=== PATIENT | female | born 1945 | race Two or more races ===

== ENCOUNTER 2019-01-02 15:13 | Emergency (ER) | payer OTHER ==
--- NOTE | 2019-01-02 15:22 | PDOC ---
Rapid Medical Evaluation Chief Complaint: Chest Pain Time Seen by Provider: 01/02/19 15:20 Medical Evaluation: 01/02/19 15:20 I have performed a brief in person evaluation of this patient. CC: CP HPI: Pt is a 73 YO female who states she has had CP x 1 day. Denies CV hx however has hx of DM and Hypercholesterolemia. PE: Skin: Clear Lungs: Clear Heart:RRR Abd: soft, nontender MS: Moves all extremities without difficulty Neuro: Alert and oriented Psych: Appropriate affect I have ordered the following: CV protocol Pt will proceed to the main ED for further evaluation. Discharge Disposition - Diagnosis Chest pain Qualifiers: Chest pain type: unspecified Qualified Code(s): R07.9 - Chest pain, unspecified - Referrals - Patient Instructions - Post Discharge Activity
[2019-01-02 15:26] VITALS: TEMP 97.2; BMI 30.1
[2019-01-02 15:53] LABS: BASO % 0.8 % (0-2.0); EOS % 0.5 % (0-4.5); HEMATOCRIT 41.9 % (32.4-45.2); HEMOGLOBIN 13.9 GM/dL (10.7-15.3); LYMPH % 23.8 % (8-40); MCH 28.2 pg (25.7-33.7); MCHC 33.2 g/dl (32.0-36.0); MEAN CELL VOLUME 84.9 fl (80-96); MEAN PLT VOLUME 8.7 fl (7.5-11.1); MONO % 5.1 % (3.8-10.2); NEUT % 69.8 % (42.8-82.8); PLATELET COUNT 329 K/MM3 (134-434); RBC 4.93 M/mm3 (3.60-5.2); RDW 14.3 % (11.6-15.6); WHITE BLOOD COUNT 9.2 K/mm3 (4.0-10.0)
[2019-01-02 16:11] LABS: ALBUMIN 3.4 g/dl (3.4-5.0); ALK PHOS 124 U/L (45-117); ANION GAP 6 MMOL/L (8-16); BILIRUBIN,TOTAL 0.3 mg/dL (0.2-1); BLOOD UREA NITROGEN 10 mg/dL (7-18); CHLORIDE 103 mmol/L (98-107); CO2 29 mmol/L (21-32); CREATININE 0.7 mg/dL (0.55-1.3); GLUCOSE,RANDOM 246 mg/dL (74-106); MAGNESIUM 1.9 mg/dL (1.8-2.4); POTASSIUM 4.7 mmol/L (3.5-5.1); SGOT/AST 17 U/L (15-37); SGPT/ALT 24 U/L (13-61); SODIUM 138 mmol/L (136-145); TOT PROT 6.9 g/dl (6.4-8.2)
--- NOTE | 2019-01-02 16:20 | PDOC ---
History of Present Illness - General Chief Complaint: Chest Pain Stated Complaint: CHEST PAIN Time Seen by Provider: 01/02/19 15:20 History Source: Patient, Family ( and son at bedside.), [employer] Used Exam Limitations: Language Barrier - History of Present Illness Initial Comments: HPI: 75 y/o female presenting to [facility] ER complaining of a burning sensation to center of chest x2 days. Reports postprandial improvement. Endorses mild SOB, nausea, and diaphoresis when symptoms are at maximal intentensity. Denies radiation to back, neck, or arms. No change with exertion. No history of similar symptoms. Some improvement when taking prescribed Gabapentin. Pt denies difficulty taking prescribed diabetic medications. Pt is Tristanian german speaking only. Interpretation provided by Red Aril [employer]. PCP: Ricki Alberts Hx: - No foreign travel in past three months Medical Hx: - Insulin dependent Diabetes - HLD - Chronic right shoulder and back pain Past History - Past Medical History Allergies/Adverse Reactions: Allergies Allergy/AdvReac Type Severity Reaction Status Date / Time No Known Allergies Allergy Verified 01/02/19 15:23 Home Medications: Ambulatory Orders Amoxicillin - [Amoxicillin 250mg Capsule -] 250 mg PO BID 01/02/19 Aspirin [ASA -] 81 mg PO DAILY 01/02/19 Bisoprolol Fumarate 5 mg PO DAILY 01/02/19 Gabapentin 600 mg PO TID 01/02/19 Lisinopril 2.5 mg PO DAILY 01/02/19 Metoclopramide HCl 5 mg PO TID 01/02/19 Omeprazole 20 mg PO DAILY 14 Days #14 tablet. 01/02/19 - Suicide/Smoking/Psychosocial Hx Smoking History: Never smoked Hx Alcohol Use: No Drug/Substance Use Hx: No Review of Systems - Review of Systems Able to Perform ROS?: Yes Comments:: In addition to that documented in the HPI above, the additional ROS was obtained : Constitutional: Denies fevers or chills Eyes: Denies vision changes ENMT: Denies sore throat CV: Per HPI. Denies palpitations. Resp: Per HPI GI: Denies vomiting or diarrhea : Denies painful urination MSK: Denies recent trauma Skin: Denies new rashes Neuro: Denies new numbness or tingling or weakness Endocrine: Denies polyuria Heme: Denies bleeding or bruising *Physical Exam - Vital Signs Last Vital Signs Temp Pulse Resp BP Pulse Ox 97.2 F L 68 18 125/65 96 01/02/19 15:23 01/02/19 15:23 01/02/19 15:23 01/02/19 15:23 01/02/19 15:23 - Physical Exam Comments: Constitutional: Well-developed, well-nourished, obese female in no acute distress or obvious discomfort. Found semi-fowlers on hospital bed. Alert and oriented x4. Answered all questions appropriately and completely. Speech was non -labored, non-pressured. Head: Normocephalic. No obvious external signs of trauma. Eyes: Sclerae white. Conjunctiva moist and not injected. Ears: Hearing grossly intact. Nose: No nasal discharge. Throat: Oral cavity and pharynx normal. No inflammation, swelling, exudate, or lesions. Neck: Supple, trachea is midline. Cardiovascular / Chest: Regular rate and regular rhythm. No murmur, rubs, clicks, or gallops. Peripheral pulses: radial pulses full. Mild diffuse tenderness to sternal palpation. No grimace or withdrawl. Respiratory: Breathing unlabored. Equal chest rise and fall. Clear to auscultation bilaterally. No stridor, no wheezing, no rhonchi. Gastrointestinal: abdomen is tender in RUQ with grimace but no rebound or guarding. No Gaines sign. Globally, abdomen is soft and nondistended. Neuro: Alert and oriented. Moving all four extremities spontaneously. Skin: Warm, dry, and intact. Psych: Affect: appropriate. Mood: normal. Moderate Sedation - Procedure Monitoring Vital Signs: Procedure Monitoring Vital Signs Temperature 97.2 F L 01/02/19 15:23 Pulse Rate 68 01/02/19 15:23 Respiratory Rate 18 01/02/19 15:23 Blood Pressure 125/65 01/02/19 15:23 O2 Sat by Pulse Oximetry (%) 96 01/02/19 15:23 ED Treatment Course - LABORATORY CBC & Chemistry Diagram: 01/02/19 15:39 01/02/19 15:39 - ADDITIONAL ORDERS Additional order review: Laboratory Results 01/02/19 15:39 Sodium 138 Potassium 4.7 Chloride 103 Carbon Dioxide 29 Anion Gap 6 L BUN 10 Creatinine 0.7 Creat Clearance w eGFR > 60 Random Glucose 246 H Calcium 9.0 Magnesium 1.9 Total Bilirubin 0.3 AST 17 ALT 24 Alkaline Phosphatase 124 H Creatine Kinase 75 Troponin I < 0.02 Total Protein 6.9 Albumin 3.4 01/02/19 15:39 RBC 4.93 MCV 84.9 MCHC 33.2 RDW 14.3 MPV 8.7 Neutrophils % 69.8 Lymphocytes % 23.8 Monocytes % 5.1 Eosinophils % 0.5 Basophils % 0.8 Medical Decision Making - Medical Decision Making *Reviewed vital signs, nursing notes, and prior visit documentation (if available). 76 y/o Yaminese Telugu speaking female complaining of burning sensation in chest relieved by eating x2 days. H/o of insulin dependent diabetes and HLD. No exertional component. Afebrile. Vitals unremarkable for hypotension or tachycardia. Physical exam as described above. Suspect gastric reflux versus PUD. Ordered GI cocktail. Obtained RUQ U/S given RUQ pain. Unremarkable for evidence of cholecystitis. Low suspicion for ACS. EKG was unremarkable for ectopy. 2x trended troponin were negative. CBC unremarkable for anemia or leukocytosis. CMP unremarkable for significant electrolyte derangement. LFTs within normal limits. Lipase not elevated. Will prescribe omeprazole prescription x14 days. 20:12 Attempted to reassess pt but unable to locate. Neither pt nor family are in assigned room. Jackets and pts pill bottles remain in bed. Will attempt to reassess again. 20:55 Pt reassessed. Family reports they left the department to eat dinner. Pt reports the pain resolved after taking the medication. Discussed imaging and laboratory results with pt and family. Answered all questions. Provided return precautions. Pt expressed verbal understanding and agreement with plan to discharge home with outpatient follow up. *DC/Admit/Observation/Transfer Diagnosis at time of Disposition: Atypical chest pain - Discharge Dispostion Disposition: HOME Condition at time of disposition: Good Decision to Admit order: No - Prescriptions Prescriptions: Omeprazole 20 mg PO DAILY 14 Days #14 tablet.dr - Referrals Referrals: Paul Robison MD [Primary Care Provider] - - Patient Instructions Printed Discharge Instructions: DI for Gastroesophageal Reflux Disease (GERD), DI for Chest Pain Additional Instructions: You were seen today for a burning sensation in your chest. Your EKG, chest xray , ultrasound, and blood work were normal today. Your symptoms are likely from acid reflux. I have sent a prescription for Omeprazole to your pharmacy. Take this medication once a day in the morning an hour before breakfast. You should follow up with Dr. Robison within the next week to make sure your symptoms are improving. A copy of todays results are attached to this packet. Take it to the appointment so your doctor can review them. Go to the nearest emergency department if your condition worsens or you feel like you need additional emergency evaluation. Print Language: CROATIAN - Post Discharge Activity
[2019-01-02 16:53] LABS: INR 0.98 (0.83-1.09); PROTHROMBIN TIME (PATIENT) 11.6 SEC (9.7-13.0)
[2019-01-02] MEDS ORDERED: PANTOPRAZOLE SODIUM 40 MG VIAL IVPUSH ONE (17:03)
[2019-01-02] MEDS ORDERED: LIDOCAINE VISCOUS 2% ORAL/TOP 100 ML BOTTLE MM ONE (17:03)
[2019-01-02] MEDS ORDERED: MAG HYDROX/AL HYDROX/SIMETH 30 ML UNIT-DOSE CUP PO ONE (17:03)
--- NOTE | 2019-01-02 17:10 | PDOC ---
Attending Attestation - HPI HPI: 01/02/19 18:16 The patient is a 73 year old female with a significant past medical history of diabetes and hypercholesterolemia who presents to the emergency department with chest pain for 2 days. The patient describes her chest pain as a non-radiating burning sensation in her mid chest. She states that her chest pain is better with eating and sometimes relieved with exertion. She denies any metallic taste in her mouth, vomiting, diarrhea, constipation or urinary symptoms. She denies any recent travel. The patient denies any other symptoms or complaints. Documentation prepared by Randall Aguirre, acting as medical pathology teacher for Allison Saldivar MD. <Randall Aguirre - Last Filed: 01/02/19 18:16> - Resident Resident Name: Juan Quarles - ED Attending Attestation I have performed the following: I have examined & evaluated the patient, The case was reviewed & discussed with the resident, I agree w/resident's findings & plan, Exceptions are as noted - HPI HPI: 01/02/19 17:08 73-year-old female presents with 2 days of mid chest burning sensation that gets better with eating. She also has c/o RUQ pain 01/02/19 17:14 - Physicial Exam PE: 01/02/19 17:14 wnwd 73 yo female head ncat eyes eomi throat no exudates neck supple,no jvd,no bruit lungs cta b/l cvs [id number] abd no rebound,no guarding ext no edema,no clubbing skin warm and dry neuro axox3,ambulatory - Medical Decision Making 01/02/19 17:16 pt's symptoms bring up concern for GERD and she was given protonix, viscous lidocaine,maalox ekg is nsr with no abnormalities,no ischemia,normal QTc NEGATIVE troponin,labs unremarkable 01/02/19 20:22 both sets of cardiac enzymes are negative and pt d/c home w impression of GERD symptoms <Allison Saldivar - Last Filed: 01/02/19 20:22>
[2019-01-02 17:41] LABS: LIPASE 164 U/L (73-393)
[2019-01-02] MEDS ORDERED: PANTOPRAZOLE SODIUM 40 MG VIAL ONE (18:46)
[2019-01-02] MEDS ORDERED: MAG HYDROX/AL HYDROX/SIMETH 30 ML UNIT-DOSE CUP ONE (18:46)
[2019-01-02] MEDS ORDERED: LIDOCAINE VISCOUS 2% ORAL/TOP 20 ML UNIT-DOSE CUP ONE (19:06)
[2019-01-02 20:23] VITALS: BP 113/59; PULSE 78
--- NOTE | 2019-01-04 11:58 | EKG ---
Test Reason : Blood Pressure : / mmHG Vent. Rate : 067 BPM Atrial Rate : 067 BPM P-R Int : 164 ms QRS Dur : 088 ms QT Int : 400 ms P-R-T Axes : 008 002 045 degrees QTc Int : 422 ms NORMAL SINUS RHYTHM NORMAL ECG NO PREVIOUS ECGS AVAILABLE Confirmed by NANY LOZOYA MD ([id number]) on 01/04/2019 11:57:49 AM Referred By: Confirmed By:NANY LOZOYA MD
== END 2019-01-02 21:22 | disposition home or self-care (01) ==
LOC: JER 15:13
PROC: 3E033GC Introduction of Other Therapeutic Substance into Peripheral Vein, Percutaneous Approach (ICD-10-PCS; principal; 2019-01-02)
DX: R07.89 Other chest pain (principal); E11.9 Type 2 diabetes mellitus without complications; Z79.4 Long term (current) use of insulin; E78.5 Hyperlipidemia, unspecified; M25.511 Pain in right shoulder; M54.9 Dorsalgia, unspecified; G89.29 Other chronic pain
CPT/HCPCS: 36415; 71046-TC-FY; 76705-TC; 80053; 82550; 83690; 83735; 84484; 85025; 85610; 93005; 93010; 96374; 99284-25

== ENCOUNTER 2019-02-26 15:27 | Observation (INO) | payer OTHER ==
--- NOTE | 2019-02-26 15:43 | PDOC ---
Rapid Medical Evaluation Chief Complaint: Chest Pain Time Seen by Provider: 02/26/19 15:42 Medical Evaluation: Allergies Allergy/AdvReac Type Severity Reaction Status Date / Time No Known Allergies Allergy Verified 02/20/19 10:13 02/26/19 15:42 I have performed a brief in-person evaluation of this patient. The patient presents with a chief complaint of: epigastric pain x 1 month Pertinent physical exam findings: No chest tenderness. Lungs CTAB. I have ordered the following: labs, urine, ekg The patient will proceed to the ED for further evaluation. Discharge Disposition - Diagnosis Epigastric pain - Referrals - Patient Instructions - Post Discharge Activity
--- NOTE | 2019-02-26 15:58 | PDOC ---
History of Present Illness - General Chief Complaint: Chest Pain Stated Complaint: SEND FROM PCP FOR OBSERVATION AND WORK UP Time Seen by Provider: 02/26/19 15:42 History Source: Patient Exam Limitations: No Limitations - History of Present Illness Initial Comments: 02/26/19 16:27 73 year old female with PMH HTN, HLD, DM, peripheral neuropathy, GERD presented to ED for epigastric burning x5 months. Pt sent to ED by Dr. Robison. Pt stated her epigastric burning is worse with eating, radiates to her back and chest, no alleviating factors, no association with time of day, no association with lying flat. Pt admitted to nausea after eating. Pt denied vomiting, diarrhea, fever, chills. Pt denied recent travel out of the country. Allergies: NKDA Past History - Past Medical History Allergies/Adverse Reactions: Allergies Allergy/AdvReac Type Severity Reaction Status Date / Time No Known Allergies Allergy Verified 02/26/19 15:44 Home Medications: Ambulatory Orders Amoxicillin - [Amoxicillin 250mg Capsule -] 250 mg PO BID 01/02/19 Aspirin [ASA -] 81 mg PO DAILY 01/02/19 Bisoprolol Fumarate 5 mg PO DAILY 01/02/19 Gabapentin 600 mg PO TID 01/02/19 Lisinopril 2.5 mg PO DAILY 01/02/19 Metoclopramide HCl 5 mg PO TID 01/02/19 Omeprazole 20 mg PO DAILY 14 Days #14 tablet. 01/02/19 Dicyclomine HCl 10 mg PO BID 02/26/19 Insulin Glargine,Hum.rec.anlog [Lantus Solostar PEN (NF)] 8 units SQ HS Insulin Glargine,Hum.rec.anlog [Lantus Solostar PEN (NF)] 30 units SQ AM Simvastatin 20 mg PO DAILY 02/26/19 COPD: No Diabetes: Yes Hypercholesterolemia: Yes Other medical history: THORACIC ANEURYSM - Suicide/Smoking/Psychosocial Hx Smoking History: Never smoked Information on smoking cessation initiated: No Hx Alcohol Use: No Drug/Substance Use Hx: No Review of Systems - Review of Systems Able to Perform ROS?: Yes Comments:: 02/26/19 16:29 General: denied fever, chills, generalized weakness. HEENT: denied sore throat, rhinorrhea, ear pain. Heart: denied chest pain, palpitations, syncope, diaphoresis. Respiratory: denied shortness of breath, cough, sputum production, hemoptysis. Abdomen: admitted to abdominal pain, nausea. denied vomiting, diarrhea, constipation, blood in stool. : denied dysuria, increased urinary frequency, hematuria, urinary incontinence , flank pain. Back: denied back pain. Musculoskeletal: denied joint pain, muscle pain, joint swelling. Neurological: denied headache, dizziness, numbness, tingling, weakness. Skin: denied rash, laceration, abrasion. *Physical Exam - Vital Signs Last Vital Signs Temp Pulse Resp BP Pulse Ox 97.7 F 82 18 139/82 98 02/26/19 15:42 02/26/19 15:42 02/26/19 15:42 02/26/19 15:42 02/26/19 15:42 - Physical Exam Comments: 02/26/19 16:29 Constitutional: Well-nourished, Well-developed, appearing stated age. HEENT: head is normocephalic, atraumatic. EOMI. PERRLA. Neck: supple. Full ROM. Heart: regular rhythm. no murmurs, rubs or gallops. Lungs: clear to auscultation bilaterally. no crackles, rhonchi or wheezing. no stridor. Abdomen: soft, flat. tenderness to palpation of LUQ. hyperactive bowel sounds. no rebound, guarding, masses. Extremities: peripheral pulses intact. no lower extremity edema. Neurological: CN 2-12 grossly intact. moves all four extremities. Psych: awake, alert, oriented x3. follows commands. answers questions appropriately. ED Treatment Course - LABORATORY CBC & Chemistry Diagram: 02/27/19 06:30 02/26/19 16:02 Medical Decision Making - Medical Decision Making 02/26/19 16:29 73 year old female with above PMH presented to ED for abdominal pain x5 months. Sent to ED by Dr. Robison for admission. Initial Vital Signs Temp Pulse Resp BP Pulse Ox 97.7 F 82 18 139/82 98 02/26/19 15:42 02/26/19 15:42 02/26/19 15:42 02/26/19 15:42 02/26/19 15:42 Afebrile. No tachycardia. No tachpnea. Mild hypertension. No hypoxia on room air. Imaging ordered: CT abdomen/pelvis Medications ordered: pepcid, maalox, reglan, tylenol IV CBC WBC 8.6 K/mm3 (4.0-10.0) 02/26/19 16:02 RBC 5.08 M/mm3 (3.60-5.2) 02/26/19 16:02 Hgb 14.0 GM/dL (10.7-15.3) 02/26/19 16:02 Hct 43.5 % (32.4-45.2) 02/26/19 16:02 MCV 85.6 fl (80-96) 02/26/19 16:02 MCH 27.5 pg (25.7-33.7) 02/26/19 16:02 MCHC 32.1 g/dl (32.0-36.0) 02/26/19 16:02 RDW 14.5 % (11.6-15.6) 02/26/19 16:02 Plt Count 337 K/MM3 (134-434) 02/26/19 16:02 MPV 8.7 fl (7.5-11.1) 02/26/19 16:02 Absolute Neuts (auto) 6.0 K/mm3 (1.5-8.0) 02/26/19 16:02 Neutrophils % 69.9 % (42.8-82.8) 02/26/19 16:02 Lymphocytes % 21.8 % (8-40) 02/26/19 16:02 Monocytes % 6.6 % (3.8-10.2) 02/26/19 16:02 Eosinophils % 0.6 % (0-4.5) 02/26/19 16:02 Basophils % 1.1 % (0-2.0) 02/26/19 16:02 Nucleated RBC % 0 % (0-0) 02/26/19 16:02 No leukocytosis. No anemia. CMP Sodium 136 mmol/L (136-145) 02/26/19 16:02 Potassium 4.4 mmol/L (3.5-5.1) 02/26/19 16:02 Chloride 102 mmol/L (98-107) 02/26/19 16:02 Carbon Dioxide 28 mmol/L (21-32) 02/26/19 16:02 Anion Gap 6 MMOL/L (8-16) L 02/26/19 16:02 BUN 9 mg/dL (7-18) 02/26/19 16:02 Creatinine 0.7 mg/dL (0.55-1.3) 02/26/19 16:02 Creat Clearance w eGFR 82.25 (>60) 02/26/19 16:02 POC Glucometer 74 UNITS (80-120) 02/27/19 06:15 Random Glucose 279 mg/dL (74-106) H 02/26/19 16:02 Hemoglobin A1c % 8.4 % (4.2-6.3) H 02/27/19 04:39 Calcium 9.1 mg/dL (8.5-10.1) 02/26/19 16:02 Magnesium 1.8 mg/dL (1.8-2.4) 02/26/19 16:02 Total Bilirubin 0.4 mg/dL (0.2-1) 02/26/19 16:02 AST 16 U/L (15-37) 02/26/19 16:02 ALT 22 U/L (13-61) 02/26/19 16:02 Alkaline Phosphatase 119 U/L (45-117) H 02/26/19 16:02 Creatine Kinase 54 U/L (26-192) 02/26/19 16:02 Troponin I < 0.02 ng/ml (0.00-0.05) 02/26/19 16:02 Total Protein 7.5 g/dl (6.4-8.2) 02/26/19 16:02 Albumin 3.6 g/dl (3.4-5.0) 02/26/19 16:02 Lipase 152 U/L (73-393) 02/26/19 16:02 No electrolyte abnormalities. No CARLOS. Hyperglycemia on BMP. Elevated Hbg A1C Normal troponin. Normal lipase. CXR: prominent mediastinum. clear lungs. sharp angles. CT abdomen/pelvis: no definitie findings of acute pathology. in comparison to CT from 2017 interval development of 3 mm nonobstructing right elliot;l calculus is seen. the reaminder of the abdomen/pelvis exam no obvious interal change. *DC/Admit/Observation/Transfer Diagnosis at time of Disposition: Epigastric pain - Discharge Dispostion Condition at time of disposition: Stable Decision to Admit order: Yes - Referrals - Patient Instructions - Post Discharge Activity
[2019-02-26 16:13] LABS: BASO % 1.1 % (0-2.0); EOS % 0.6 % (0-4.5); HEMATOCRIT 43.5 % (32.4-45.2); LYMPH % 21.8 % (8-40); MCH 27.5 pg (25.7-33.7); MCHC 32.1 g/dl (32.0-36.0); MEAN CELL VOLUME 85.6 fl (80-96); MEAN PLT VOLUME 8.7 fl (7.5-11.1); MONO % 6.6 % (3.8-10.2); NEUT % 69.9 % (42.8-82.8); PLATELET COUNT 337 K/MM3 (134-434); RBC 5.08 M/mm3 (3.60-5.2); RDW 14.5 % (11.6-15.6); WHITE BLOOD COUNT 8.6 K/mm3 (4.0-10.0)
[2019-02-26 16:26] LABS: INR 1.02 (0.83-1.09)
[2019-02-26] MEDS ORDERED: MAG HYDROX/AL HYDROX/SIMETH 30 ML UNIT-DOSE CUP PO ONE (16:31)
[2019-02-26] MEDS ORDERED: FAMOTIDINE 20 MG/50 ML IVPB 20 MG/50 ML MG IVPB ONE ×2 (16:31→17:06)
[2019-02-26] MEDS ORDERED: ACETAMINOPHEN 1000 MG/100 ML VIAL (NON FORMULARY) IVPB ONE (16:31)
[2019-02-26] MEDS ORDERED: METOCLOPRAMIDE HCL INJECTION 10 MG/2 ML VIAL IVPUSH ONE (16:31)
--- NOTE | 2019-02-26 16:42 | PDOC ---
Documentation entered by Angela Mosquera SCRIBE, acting as scribe for Caroline Delgado MD. Attending Attestation - Resident Resident Name: Faye Walker - ED Attending Attestation I have performed the following: I have examined & evaluated the patient, The case was reviewed & discussed with the resident, I agree w/resident's findings & plan - HPI HPI: 02/26/19 16:50 The patient is a 73 year old with a PMH of HTN, HLD, DM, peripheral neuropathy, and GERD who presents to the ED sent in by Dr. Robison for a 5 month history epigastric burning. The epigatric pain is exacerbated with food, and radiates into her back and chest. Patient endorses nausea, but no vomiting after eating. Denies sick contact or recent travel. Allergies: NKDA - Physicial Exam PE: GENERAL: Awake, alert, and fully oriented, in no acute distress. Appears uncomfortable HEAD: No signs of trauma EYES: PERRLA, EOMI, sclera anicteric, conjunctiva clear ENT: Auricles normal inspection, hearing grossly normal, nares patent, oropharynx clear without exudates. Moist mucosa NECK: Normal ROM, supple, no lymphadenopathy, JVD, or masses LUNGS: Breath sounds equal, clear to auscultation bilaterally. No wheezes, and no crackles HEART: Regular rate and rhythm, normal S1 and S2, no murmurs, rubs or gallops ABDOMEN: Soft, +epigastric tenderness, normoactive bowel sounds. No guarding, no rebound. No masses EXTREMITIES: Normal range of motion, no edema. No clubbing or cyanosis. No cords, erythema, or tenderness NEUROLOGICAL: Cranial nerves II through XII grossly intact. Normal speech, normal gait. Motor and sensation intact SKIN: Warm, Dry, normal turgor, no rashes or lesions noted. - Medical Decision Making Pt with epigastric/upper abdominal pain for past 5 months, sent by Dr. Robison for evaluation. Await labs, then will obtain imaging. Plan for admission. Caroline Delgado MD: This documentation has been prepared by the talaeDemetri Daisy, SCRIBE, under my direction and personally reviewed by me in its entirety. I confirm that the documentation accurately reflects all work, treatment, procedures, and medical decision making performed by me.
[2019-02-26] MEDS ORDERED: ONDANSETRON 4 MG/2 ML VIAL IVPB PRN (16:59)
[2019-02-26] MEDS ORDERED: MAG HYDROX/AL HYDROX/SIMETH 30 ML UNIT-DOSE CUP ONE (17:01)
[2019-02-26] MEDS ORDERED: ACETAMINOPHEN INJECTION 100 ML IVPB ONE (17:04)
[2019-02-26] MEDS ORDERED: METOCLOPRAMIDE HCL INJECTION 10 MG/2 ML VIAL ONE (17:08)
[2019-02-26 17:09] LABS: ALBUMIN 3.6 g/dl (3.4-5.0); ALK PHOS 119 U/L (45-117); ANION GAP 6 MMOL/L (8-16); BILIRUBIN,TOTAL 0.4 mg/dL (0.2-1); BLOOD UREA NITROGEN 9 mg/dL (7-18); CALCIUM 9.1 mg/dL (8.5-10.1); CHLORIDE 102 mmol/L (98-107); CO2 28 mmol/L (21-32); CREATININE 0.7 mg/dL (0.55-1.3); GLUCOSE,RANDOM 279 mg/dL (74-106); LIPASE 152 U/L (73-393); MAGNESIUM 1.8 mg/dL (1.8-2.4); POTASSIUM 4.4 mmol/L (3.5-5.1); SGOT/AST 16 U/L (15-37); SGPT/ALT 22 U/L (13-61); SODIUM 136 mmol/L (136-145); TOT PROT 7.5 g/dl (6.4-8.2)
--- NOTE | 2019-02-26 17:26 | HP ---
Admitting History and Physical - Primary Care Physician PCP: Paul Robison - Admission Chief Complaint: Abdominal pain History of Present Illness: Patient is a 73 y/o female with past medical history of HTN, HLD, DM, GERD, peripheral neuropathy. Patient presented to ER from PCP office with complaints of abdominal pain accompanied with nausea x 5 months. Abdominal pain radiates to chest and back and is exacerbated with food. Patient has been taking Omeprazole but does not relieve abdominal pain. Patient is followed by GI Dr. Vasquez and as per patient endoscopy performed 2 months ago, no report available for review. History Source: Patient, Family Member Limitations to Obtaining History: No Limitations - Past Medical History Cardiovascular: Yes: HTN, Hyperlipdemia Gastrointestinal: Yes: GERD - Smoking History Smoking history: Never smoked - Alcohol/Substance Use Hx Alcohol Use: No - Social History ADL: Independent History of Recent Travel: No Home Medications - Allergies Allergies/Adverse Reactions: Allergies Allergy/AdvReac Type Severity Reaction Status Date / Time No Known Allergies Allergy Verified 02/26/19 15:44 - Home Medications Home Medications: Ambulatory Orders Amoxicillin - [Amoxicillin 250mg Capsule -] 250 mg PO BID 01/02/19 Aspirin [ASA -] 81 mg PO DAILY 01/02/19 Bisoprolol Fumarate 5 mg PO DAILY 01/02/19 Gabapentin 600 mg PO TID 01/02/19 Lisinopril 2.5 mg PO DAILY 01/02/19 Insulin Glargine,Hum.rec.anlog [Lantus Solostar PEN -] 8 units SQ HS 02/26/19 Insulin Glargine,Hum.rec.anlog [Lantus Solostar PEN -] 30 units SQ AM 02/26/19 Simvastatin 20 mg PO DAILY 02/26/19 Amoxicillin - [Amoxicillin 250mg Capsule -] 250 mg PO BID capsule 03/02/19 Aspirin Coated [Ecotrin -] 81 mg PO DAILY tablet.ec 03/02/19 Docusate Sodium [Colace -] 100 mg PO Q8H PRN capsule 03/02/19 Gabapentin [Neurontin -] 600 mg PO TID capsule 03/02/19 Lisinopril [Prinivil] 2.5 mg PO DAILY tablet 03/02/19 Metoclopramide HCl [Reglan -] 10 mg PO TID #90 tablet 03/02/19 Pantoprazole Sodium 40 mg PO DAILY #30 tablet.dr 03/02/19 Polyethylene Glycol 3350 [Miralax 119 gm Btl -] 17 gm PO DAILY bottle 03/02/19 Sennosides [Senna -] 2 tab PO HS PRN tablet 03/02/19 Review of Systems - Review of Systems Constitutional: reports: Weakness Eyes: reports: No Symptoms HENT: reports: No Symptoms Neck: reports: No Symptoms Cardiovascular: reports: Chest Pain Respiratory: reports: No Symptoms Gastrointestinal: reports: Abdominal Pain, Nausea Genitourinary: reports: No Symptoms Breasts: reports: No Symptoms Reported Musculoskeletal: reports: No Symptoms Integumentary: reports: No Symptoms Neurological: reports: No Symptoms Endocrine: reports: No Symptoms Hematology/Lymphatic: reports: No Symptoms Psychiatric: reports: No Symptoms Physical Examination Vital Signs: Vital Signs Temperature 97.7 F 02/26/19 15:42 Pulse Rate 82 02/26/19 15:42 Respiratory Rate 18 02/26/19 15:42 Blood Pressure 139/82 02/26/19 15:42 O2 Sat by Pulse Oximetry (%) 98 02/26/19 15:42 Constitutional: Yes: No Distress, Calm Eyes: Yes: Conjunctiva Clear HENT: Yes: Atraumatic Cardiovascular: Yes: Regular Rate and Rhythm Respiratory: Yes: Regular, CTA Bilaterally Gastrointestinal: Yes: Normal Bowel Sounds, Soft, Tenderness (epigastric and upper abdomen) Extremities: Yes: WNL Edema: No Neurological: Yes: Alert, Oriented Psychiatric: Yes: Alert, Oriented Labs: CBC, BMP 02/26/19 16:02 02/26/19 16:02 Imaging - Results Cat Scan: Pending EKG: Report Reviewed Problem List - Problems (1) HTN (hypertension) Assessment/Plan: -continue Lisinopril Code(s): I10 - ESSENTIAL (PRIMARY) HYPERTENSION (2) GERD (gastroesophageal reflux disease) Assessment/Plan: -Pantoprazole IVPB daily -GI consult -zofran IVPB for nausea Code(s): K21.9 - GASTRO-ESOPHAGEAL REFLUX DISEASE WITHOUT ESOPHAGITIS (3) Diabetes mellitus Assessment/Plan: -BGM AC HS -ISS -will hold Levemir due to NPO status--will resume when patient start diet -HgA1c ordered Code(s): E11.9 - TYPE 2 DIABETES MELLITUS WITHOUT COMPLICATIONS (4) Epigastric pain Assessment/Plan: -Pending Abd/Pelvic CT scan -Pantoprazole IVPB daily -GI consult -zofran for nausea -surgery consult -amylase and lipase ordered -NPO -D5 0.9% NS at 42cc/hr Code(s): R10.13 - EPIGASTRIC PAIN (5) Atypical chest pain Assessment/Plan: -EKG -troponin ordered -cardiology consult Code(s): R07.89 - OTHER CHEST PAIN Assessment/Plan see problem list dvt ppx
[2019-02-26] MEDS ORDERED: SODIUM CHLORIDE 1,000 ML IV STA (17:36)
[2019-02-26] MEDS: DEXTROSE 5%-NORMAL SALINE 1,000 ML IV SCH (18:41)
[2019-02-26] MEDS ORDERED: DIPHTH,PERTUSS(ACELL),TET 0.5 ML DISP.SYRIN IM ONE (19:08)
[2019-02-26] MEDS: INSULIN SLIDING SCALE (NOVOLOG) 1 VIAL SQ SCH (22:45)
[2019-02-26] MEDS: GABAPENTIN 300 MG CAPSULE (FP) PO SCH (22:45)
[2019-02-26] MEDS: AMOXICILLIN 250 MG CAPSULE PO SCH (22:45)
[2019-02-27] MEDS: INSULIN SLIDING SCALE (NOVOLOG) 1 VIAL SQ SCH ×4 (06:16→22:00)
[2019-02-27] MEDS: GABAPENTIN 300 MG CAPSULE (FP) PO SCH ×3 (06:16→21:55)
[2019-02-27 07:41] LABS: BASO % 0.7 % (0-2.0); EOS % 1.8 % (0-4.5); HEMATOCRIT 36.3 % (32.4-45.2); LYMPH % 26.8 % (8-40); MCH 27.9 pg (25.7-33.7); MEAN CELL VOLUME 84.8 fl (80-96); MEAN PLT VOLUME 8.5 fl (7.5-11.1); MONO % 7.6 % (3.8-10.2); NEUT % 63.1 % (42.8-82.8); PLATELET COUNT 272 K/MM3 (134-434); RBC 4.29 M/mm3 (3.60-5.2); RDW 13.8 % (11.6-15.6); WHITE BLOOD COUNT 6.7 K/mm3 (4.0-10.0)
[2019-02-27 08:05] LABS: ALBUMIN 2.8 g/dl (3.4-5.0); ALK PHOS 88 U/L (45-117); AMYLASE 47 U/L (25-115); ANION GAP 3 MMOL/L (8-16); BILIRUBIN,TOTAL 0.4 mg/dL (0.2-1); BLOOD UREA NITROGEN 6 mg/dL (7-18); CALCIUM 8.5 mg/dL (8.5-10.1); CHLORIDE 109 mmol/L (98-107); CO2 31 mmol/L (21-32); CREATININE 0.5 mg/dL (0.55-1.3); GLUCOSE,RANDOM 77 mg/dL (74-106); LIPASE 99 U/L (73-393); MAGNESIUM 1.8 mg/dL (1.8-2.4); PHOSPHOROUS 3.8 mg/dL (2.5-4.9); POTASSIUM 4.3 mmol/L (3.5-5.1); SGOT/AST 12 U/L (15-37); SGPT/ALT 16 U/L (13-61); SODIUM 143 mmol/L (136-145); TOT PROT 5.9 g/dl (6.4-8.2)
[2019-02-27 08:26] LABS: EPI CELLS 20.4 /HPF (0-5/HPF); PH,URINE 7.5 (5.0-8.0); URINE APPEARANCE CLEAR; URINE BILIRUBIN NEGATIVE (NEGATIVE); URINE COLOR YELLOW; URINE GLUCOSE (UA) NEGATIVE (NEGATIVE); URINE KETONE NEGATIVE (NEGATIVE); URINE LEUK ESTERASE 1+ (NEGATIVE); URINE NITRITE NEGATIVE (NEGATIVE); URINE PROTEIN NEGATIVE (NEGATIVE); URINE RBC 1.3 /hpf (0-4); URINE UROBILINOGEN 0.2 mg/dL (0.2-1.0); URINE WBC 15.8 /hpf (0-5)
[2019-02-27 08:27] LABS: URINE BACTERIA 72.5 /hpf (NEGATIVE); URINE CASTS 2.23 /lpf (0-8)
[2019-02-27] MEDS ORDERED: METOCLOPRAMIDE HCL INJECTION 10 MG/2 ML VIAL IVPUSH PRN (08:42)
--- NOTE | 2019-02-27 08:42 | PN ---
Progress Note, Physician Chief Complaint: AWAKE IN MODERATE DISTRESS ABD PAIN WITH INTENSITY 9/10 NPO AWAITING GI WORKUP - Current Medication List Current Medications: Active Medications Amoxicillin (Amoxicillin -) 250 mg PO BID [facility] Last Admin: 02/26/19 22:45 Dose: 250 mg Aspirin (Ecotrin -) 81 mg PO DAILY [facility] Gabapentin (Neurontin -) 600 mg PO TID [facility] Last Admin: 02/27/19 06:16 Dose: 600 mg Dextrose/Sodium Chloride (D5-Ns -) 1,000 mls @ 42 mls/hr IV ASDIR [facility] Last Admin: 02/26/19 18:41 Dose: Not Given Insulin Aspart (Novolog Vial Sliding Scale -) 1 vial SQ ACHS [facility]; Protocol Last Admin: 02/27/19 06:16 Dose: Not Given Lisinopril (Prinivil) 2.5 mg PO DAILY [facility] Ondansetron HCl (Zofran Injection) 4 mg IVPB Q6H PRN PRN Reason: NAUSEA Pantoprazole Sodium (Protonix Iv) 40 mg IVPB DAILY [facility] - Objective Vital Signs: Vital Signs Temperature 98.3 F 02/27/19 03:15 Pulse Rate 71 02/27/19 03:15 Respiratory Rate 18 02/27/19 03:15 Blood Pressure 132/75 02/27/19 03:15 O2 Sat by Pulse Oximetry (%) 94 L 02/27/19 03:15 Constitutional: Yes: Moderate Distress Eyes: Yes: WNL HENT: Yes: WNL Neck: Yes: WNL Cardiovascular: Yes: Regular Rate and Rhythm Respiratory: Yes: Diminished Gastrointestinal: Yes: Distention, Tenderness Genitourinary: Yes: WNL Musculoskeletal: Yes: Back Pain Extremities: Yes: WNL Edema: No Peripheral Pulses WNL: Yes Integumentary: Yes: WNL Wound/Incision: Yes: Clean/Dry Neurological: Yes: WNL ...Motor Strength: WNL Psychiatric: Yes: WNL Labs: CBC, BMP 02/27/19 06:30 02/27/19 06:30 INR, PTT INR 1.02 (0.83-1.09) 02/26/19 16:02 Problem List - Problems (1) Renal colic Code(s): N23 - UNSPECIFIED RENAL COLIC (2) Gastroparesis Code(s): K31.84 - GASTROPARESIS (3) Diabetes mellitus Code(s): E11.9 - TYPE 2 DIABETES MELLITUS WITHOUT COMPLICATIONS (4) Epigastric pain Code(s): R10.13 - EPIGASTRIC PAIN (5) GERD (gastroesophageal reflux disease) Code(s): K21.9 - GASTRO-ESOPHAGEAL REFLUX DISEASE WITHOUT ESOPHAGITIS (6) HTN (hypertension) Code(s): I10 - ESSENTIAL (PRIMARY) HYPERTENSION (7) Atypical chest pain Code(s): R07.89 - OTHER CHEST PAIN Assessment/Plan CT SCAN SHOWS RENAL COLIC 3MM UNLIKELY CAUSE OF PAIN GI CONSULT RECOMMENDING ENDOSCOPY R/O PUD VS OTHER NPO IVF BGM CHECKS IV PPI/REGLAN
[2019-02-27] MEDS: PANTOPRAZOLE SODIUM 40 MG VIAL IVPB SCH (09:37)
[2019-02-27] MEDS: LISINOPRIL 5 MG TABLET (FP) PO SCH (09:43)
[2019-02-27] MEDS ORDERED: METOCLOPRAMIDE HCL INJECTION 10 MG/2 ML VIAL IVPUSH SCH (10:00)
--- NOTE | 2019-02-27 11:04 | EKG ---
Test Reason : Blood Pressure : / mmHG Vent. Rate : 076 BPM Atrial Rate : 076 BPM P-R Int : 184 ms QRS Dur : 084 ms QT Int : 368 ms P-R-T Axes : 046 -06 036 degrees QTc Int : 414 ms NORMAL SINUS RHYTHM NORMAL ECG WHEN COMPARED WITH ECG OF 02-JAN-2019 15:17, NO SIGNIFICANT CHANGE WAS FOUND Confirmed by MD Mayo Edward ([id number]) on 02/27/2019 11:03:39 AM Referred By: Confirmed By:Smith Mayo MD
[2019-02-27] MEDS: ACETAMINOPHEN 1000 MG/100 ML VIAL (NON FORMULARY) IVPB PRN (13:20)
[2019-02-27] MEDS: ASPIRIN COATED 81 MG TABLET.EC PO SCH (13:22)
[2019-02-27] MEDS ORDERED: ONDANSETRON 4 MG/2 ML VIAL IVPB ONE (15:39)
--- NOTE | 2019-02-27 15:51 | PN ---
Progress Note (short form) - Note Progress Note: Patient has history of metal naveed placement to back. Patient family sts she had infection to the naveed a few years ago. Patient complains of back that starts at her back and radiates to front. Discussed with Dr. Robison and will consult Dr. Araiza. Problem List - Problems (1) HTN (hypertension) Code(s): I10 - ESSENTIAL (PRIMARY) HYPERTENSION (2) GERD (gastroesophageal reflux disease) Code(s): K21.9 - GASTRO-ESOPHAGEAL REFLUX DISEASE WITHOUT ESOPHAGITIS (3) Diabetes mellitus Code(s): E11.9 - TYPE 2 DIABETES MELLITUS WITHOUT COMPLICATIONS (4) Epigastric pain Code(s): R10.13 - EPIGASTRIC PAIN (5) Atypical chest pain Code(s): R07.89 - OTHER CHEST PAIN
--- NOTE | 2019-02-27 15:58 | CONSULT ---
Consult Consult Specialty:: Nephrology Reason for Consultation:: nephrolithiasis and abdominal pain - History of Present Illness Chief Complaint: abdominal pain History of Present Illness: Pt is a 73 year old female with pmhx of HTN, HLD, DM, and GERD who presents to the ER with abdominal pain. She was found to have a kidney stone and I was called to evaluate her. She feels that the pain wraps around her abdomen. She denies fevers or chills. She denies diarrhea. She does have history of gerd. She recently had an endoscopy that showed gastritis. She has history of spine surgery. She also has history of infected spine hardware. - History Source History Provided By: Patient, Family Member, Medical Record - Past Medical History Cardio/Vascular: Yes: HTN, Hyperlipdemia Gastrointestinal: Yes: GERD ...: No - Past Surgical History Additional Surgical History: back surgery x 3 - Alcohol/Substance Use Hx Alcohol Use: No - Smoking History Smoking history: Never smoked - Social History ADL: Independent History of Recent Travel: No Home Medications - Allergies Allergies/Adverse Reactions: Allergies Allergy/AdvReac Type Severity Reaction Status Date / Time No Known Allergies Allergy Verified 02/26/19 15:44 - Home Medications Home Medications: Ambulatory Orders Amoxicillin - [Amoxicillin 250mg Capsule -] 250 mg PO BID 01/02/19 Aspirin [ASA -] 81 mg PO DAILY 01/02/19 Bisoprolol Fumarate 5 mg PO DAILY 01/02/19 Gabapentin 600 mg PO TID 01/02/19 Lisinopril 2.5 mg PO DAILY 01/02/19 Metoclopramide HCl 5 mg PO TID 01/02/19 Omeprazole 20 mg PO DAILY 14 Days #14 tablet. 01/02/19 Dicyclomine HCl 10 mg PO BID 02/26/19 Insulin Glargine,Hum.rec.anlog [Lantus Solostar PEN (NF)] 8 units SQ HS Insulin Glargine,Hum.rec.anlog [Lantus Solostar PEN (NF)] 30 units SQ AM Simvastatin 20 mg PO DAILY 02/26/19 Family Disease History - Family Disease History Family History: Denies Review of Systems - Review of Systems Constitutional: reports: Malaise. denies: Chills, Fever Eyes: reports: No Symptoms HENT: reports: No Symptoms Neck: reports: No Symptoms Cardiovascular: reports: No Symptoms Respiratory: reports: No Symptoms Gastrointestinal: reports: Abdominal Pain Genitourinary: reports: No Symptoms Musculoskeletal: reports: Back Pain Neurological: reports: No Symptoms Endocrine: reports: No Symptoms Hematology/Lymphatic: reports: No Symptoms Psychiatric: reports: No Symptoms Physical Exam Vital Signs: Vital Signs Temperature 97.9 F 02/27/19 14:00 Pulse Rate 83 02/27/19 14:00 Respiratory Rate 20 02/27/19 14:00 Blood Pressure 119/64 02/27/19 14:00 O2 Sat by Pulse Oximetry (%) 94 L 02/27/19 03:15 Constitutional: Yes: Calm Eyes: Yes: Conjunctiva Clear HENT: Yes: Atraumatic Cardiovascular: Yes: S1, S2 Respiratory: Yes: CTA Bilaterally Gastrointestinal: Yes: Soft Renal/: Yes: WNL Musculoskeletal: Yes: WNL Edema: No Neurological: Yes: Oriented Psychiatric: Yes: Oriented Labs: CBC, BMP 02/27/19 06:30 02/27/19 06:30 Laboratory Tests 02/26/19 02/27/19 02/27/19 16:02 06:00 06:30 WBC 8.6 6.7 Hgb 12.0 BUN Creatinine Ur Specific [place] 1.054 H Urine Protein Negative Urine Blood Negative Urine Nitrite Negative Urine Bilirubin Negative Ur Leukocyte Esterase 1+ H 02/27/19 06:30 WBC Hgb BUN 6 L Creatinine 0.5 L Ur Specific [place] Urine Protein Urine Blood Urine Nitrite Urine Bilirubin Ur Leukocyte Esterase Imaging - Results Cat Scan: Report Reviewed Problem List - Problems (1) Nephrolithiasis Code(s): N20.0 - CALCULUS OF KIDNEY (2) Diabetes mellitus Code(s): E11.9 - TYPE 2 DIABETES MELLITUS WITHOUT COMPLICATIONS (3) Epigastric pain Code(s): R10.13 - EPIGASTRIC PAIN (4) GERD (gastroesophageal reflux disease) Code(s): K21.9 - GASTRO-ESOPHAGEAL REFLUX DISEASE WITHOUT ESOPHAGITIS (5) HTN (hypertension) Code(s): I10 - ESSENTIAL (PRIMARY) HYPERTENSION Assessment/Plan Current Medications Generic Name Dose Route Start Last Admin Trade Name Freq PRN Reason Stop Dose Admin Acetaminophen 1,000 mg 02/27/19 13:05 02/27/19 13:20 Ofirmev Injection - IVPB 1,000 mg Q6H PRN Administration PAIN 5-10 Amoxicillin 250 mg 02/26/19 22:00 02/26/19 22:45 Amoxicillin - PO 250 mg BID [facility] Administration Aspirin 81 mg 02/27/19 10:00 02/27/19 13:22 Ecotrin - PO 81 mg DAILY [facility] Administration Gabapentin 600 mg 02/26/19 22:00 02/27/19 06:16 Neurontin - PO 600 mg TID [facility] Administration Dextrose/Sodium Chloride 1,000 mls @ 42 mls/hr 02/26/19 17:00 02/26/19 18:41 D5-Ns - IV Not Given ASDIR [facility] Insulin Aspart 1 vial 02/26/19 22:00 02/27/19 12:20 Novolog Vial Sliding Scale - SQ Not Given ACHS [facility] Protocol Lisinopril 2.5 mg 02/27/19 10:00 02/27/19 09:43 Prinivil PO 2.5 mg DAILY [facility] Administration Ondansetron HCl 4 mg 02/27/19 15:45 Zofran Injection IVPB Q6H [facility] Pantoprazole Sodium 40 mg 02/27/19 10:00 02/27/19 09:37 Protonix Iv IVPB 40 mg DAILY [facility] Administration Impression 1. nehrolithiasis - 3 mm right calculus 2. abdominal pain 3. hx of back surgery 4. DM 5. HTN 6. gerd Plan - unlikely that her symptoms are from the kidney stone - repeat ua and send culture - pt does have hardware in her back, may have referred pain, spoke to medical team - GI eval pending - can have stone workup after discharge, recommend low salt diet and adequate volume intake
[2019-02-27] MEDS ORDERED: PT OWN MED DRAWER 7, Y5N ONE (16:04)
[2019-02-27] MEDS: ONDANSETRON 4 MG/2 ML VIAL IVPB SCH ×2 (16:08→22:28)
[2019-02-27] MEDS: AMOXICILLIN 250 MG CAPSULE PO SCH ×2 (16:09→21:55)
--- NOTE | 2019-02-27 16:20 | CONS ---
DATE OF CONSULTATION: DATE OF DICTATION: 02/27/2019 GASTROENTEROLOGY CONSULTATION HISTORY OF PRESENT ILLNESS: Patient is a 73-year-old female with past medical history of hypertension, hyperlipidemia, diabetes, reflux disease, peripheral neuropathy, who apparently has been experiencing nausea and vomiting over the past 5 months. She states that her symptoms are worse with p.o. intake. She has been taking omeprazole without much relief. She had an outpatient endoscopy done on January 18 this year which revealed gastritis and a small hiatal hernia as part of report. She has not had a recent colonoscopy. She denies any blood in the stool or hematemesis. PAST MEDICAL AND SURGICAL HISTORY: As listed in the HPI. ALLERGIES: No known drug allergies. HOME MEDICATIONS: Include aspirin, gabapentin, lisinopril, Reglan, omeprazole, and . SOCIAL HISTORY: Does not drink, smoke or use drugs. FAMILY HISTORY: No history of GI or gynecological malignancy. PHYSICAL EXAMINATION: VITAL SIGNS: Temperature 98, pulse 74, blood pressure 138/60, pulse oximetry 94% on room air, respiratory rate 18. GENERAL: In no acute distress. HEENT: Anicteric sclerae. CARDIOVASCULAR: S1, S2, regular rate and rhythm. LUNGS: Bilaterally clear to auscultation. ABDOMEN: Soft, nontender. EXTREMITIES: No edema. LABORATORY: White blood cell count 6.7, hemoglobin and hematocrit 12/36, MCV 84, platelet count 272, INR 1. Sodium 143, potassium 4.3, BUN/creatinine 6/0.5, glucose 77, hemoglobin A1c 8.4, urine 1+ leukocyte esterase. No cultures were taken. She had a CT scan of the abdomen and pelvis which revealed no definite CT findings of an acute pathology. There is a 3-mm nonobstructing right renal calculus. Multilevel thoracolumbar spine surgery seen. IMPRESSION: Nausea, vomiting, occasional epigastric abdominal pain which may be multifactorial including history of gastritis; however, diabetic associated gastroparesis cannot be excluded. As per her history, she has not taken Reglan at home, so is unclear if she has been treated for potential gastroparesis. Biliary tree appears to be normal on imaging and labs. RECOMMENDATION: Clear liquid diet. Gastric emptying study. Hold any motility agents. Continue her on PPI therapy for now. Would hold off on any invasive procedures at this time considering she has had an upper endoscopy approximately 3 weeks ago. Avoid NSAIDs, and patient will be followed by GI service. DO SUZETTE [id number]
[2019-02-27] MEDS: DEXTROSE 5%-NORMAL SALINE 1,000 ML IV SCH (17:19)
--- NOTE | 2019-02-27 20:13 | CONSULT ---
Consult Consult Specialty:: Surgery Reason for Consultation:: abdominal pain - History of Present Illness Chief Complaint: abdominal pain History of Present Illness: Patient is a 73 y/o female with past medical history of HTN, HLD, DM, GERD, peripheral neuropathy. Patient presented to ER from PCP office with complaints of abdominal pain accompanied with nausea x 5 months. Abdominal pain radiates to chest and back and is exacerbated with food. Patient has been taking Omeprazole but does not relieve abdominal pain. Pain is described as bilateral subcostal radiating to the retrosternal region associated with poor appetite. - Past Medical History Cardio/Vascular: Yes: HTN, Hyperlipdemia Gastrointestinal: Yes: GERD ...: No - Past Surgical History Additional Surgical History: back surgery x 3 - Alcohol/Substance Use Hx Alcohol Use: No - Smoking History Smoking history: Never smoked - Social History ADL: Independent History of Recent Travel: No Home Medications - Allergies Allergies/Adverse Reactions: Allergies Allergy/AdvReac Type Severity Reaction Status Date / Time No Known Allergies Allergy Verified 02/26/19 15:44 - Home Medications Home Medications: Ambulatory Orders Amoxicillin - [Amoxicillin 250mg Capsule -] 250 mg PO BID 01/02/19 Aspirin [ASA -] 81 mg PO DAILY 01/02/19 Bisoprolol Fumarate 5 mg PO DAILY 01/02/19 Gabapentin 600 mg PO TID 01/02/19 Lisinopril 2.5 mg PO DAILY 01/02/19 Metoclopramide HCl 5 mg PO TID 01/02/19 Omeprazole 20 mg PO DAILY 14 Days #14 tablet. 01/02/19 Dicyclomine HCl 10 mg PO BID 02/26/19 Insulin Glargine,Hum.rec.anlog [Lantus Solostar PEN (NF)] 8 units SQ HS Insulin Glargine,Hum.rec.anlog [Lantus Solostar PEN (NF)] 30 units SQ AM Simvastatin 20 mg PO DAILY 02/26/19 Physical Exam Vital Signs: Vital Signs Temperature 97.4 F L 02/27/19 16:30 Pulse Rate 74 02/27/19 16:30 Respiratory Rate 18 02/27/19 16:30 Blood Pressure 123/69 02/27/19 16:30 O2 Sat by Pulse Oximetry (%) 94 L 02/27/19 03:15 Constitutional: Yes: No Distress HENT: Yes: Normocephalic Neck: Yes: Supple Cardiovascular: Yes: Regular Rate and Rhythm Respiratory: Yes: CTA Bilaterally Gastrointestinal: Yes: Soft, Abdomen, Obese, Tenderness (mild bilateral subcostal, L > R) Labs: CBC, BMP 02/27/19 06:30 02/27/19 06:30 Imaging - Results Cat Scan: Report Reviewed Ultrasound: Report Reviewed Problem List - Problems (1) GERD (gastroesophageal reflux disease) Assessment/Plan: Recommend extensive evaluation for GERD i.e., 24h Ph monitoring, manometry, UGIS. If documented to have GERD or esophageal motility disorder and unresponsive to medical management, patient may need surgical treatment at a tertiary care center (endosopic or minimally invasive procedure) Also recomment HIDA scan with EF to r/o biliary dyskinesia, re: bilateral subcostal pain Code(s): K21.9 - GASTRO-ESOPHAGEAL REFLUX DISEASE WITHOUT ESOPHAGITIS
[2019-02-28] MEDS: ONDANSETRON 4 MG/2 ML VIAL IVPB SCH ×4 (03:45→21:35)
[2019-02-28] MEDS: GABAPENTIN 300 MG CAPSULE (FP) PO SCH ×3 (05:19→21:35)
[2019-02-28] MEDS: INSULIN SLIDING SCALE (NOVOLOG) 1 VIAL SQ SCH ×4 (06:05→23:29)
--- NOTE | 2019-02-28 08:58 | PN ---
Progress Note, Physician Chief Complaint: STILL HAS ABD PAIN HIDS SCAN TODAY - Current Medication List Current Medications: Active Medications Acetaminophen (Ofirmev Injection -) 1,000 mg IVPB Q6H PRN PRN Reason: PAIN 5-10 Last Admin: 02/27/19 13:20 Dose: 1,000 mg Amoxicillin (Amoxicillin -) 250 mg PO BID [facility] Last Admin: 02/27/19 21:55 Dose: 250 mg Aspirin (Ecotrin -) 81 mg PO DAILY [facility] Last Admin: 02/27/19 13:22 Dose: 81 mg Gabapentin (Neurontin -) 600 mg PO TID [facility] Last Admin: 02/28/19 05:19 Dose: Not Given Dextrose/Sodium Chloride (D5-Ns -) 1,000 mls @ 42 mls/hr IV ASDIR [facility] Last Admin: 02/27/19 17:19 Dose: Not Given Insulin Aspart (Novolog Vial Sliding Scale -) 1 vial SQ ACHS [facility]; Protocol Last Admin: 02/28/19 06:05 Dose: Not Given Lisinopril (Prinivil) 2.5 mg PO DAILY [facility] Last Admin: 02/27/19 09:43 Dose: 2.5 mg Ondansetron HCl (Zofran Injection) 4 mg IVPB Q6H [facility] Last Admin: 02/28/19 03:45 Dose: 4 mg Pantoprazole Sodium (Protonix Iv) 40 mg IVPB DAILY [facility] Last Admin: 02/27/19 09:37 Dose: 40 mg - Objective Vital Signs: Vital Signs Temperature 98 F 02/28/19 06:49 Pulse Rate 75 02/28/19 06:49 Respiratory Rate 20 02/28/19 06:49 Blood Pressure 110/54 L 02/28/19 06:49 O2 Sat by Pulse Oximetry (%) 94 L 02/27/19 21:00 Constitutional: Yes: Mild Distress Eyes: Yes: WNL HENT: Yes: WNL Neck: Yes: WNL Cardiovascular: Yes: WNL Respiratory: Yes: WNL Gastrointestinal: Yes: Tenderness Genitourinary: Yes: WNL Musculoskeletal: Yes: Back Pain Edema: No Peripheral Pulses WNL: Yes Integumentary: Yes: WNL Wound/Incision: Yes: Clean/Dry Neurological: Yes: Pre-Existing Deficit, Weakness ...Motor Strength: LLE, RLE Psychiatric: Yes: WNL Labs: CBC, BMP 02/27/19 06:30 02/27/19 06:30 INR, PTT INR 1.02 (0.83-1.09) 02/26/19 16:02 Problem List - Problems (1) Renal colic Code(s): N23 - UNSPECIFIED RENAL COLIC (2) Gastroparesis Code(s): K31.84 - GASTROPARESIS (3) Diabetes mellitus Code(s): E11.9 - TYPE 2 DIABETES MELLITUS WITHOUT COMPLICATIONS (4) Epigastric pain Code(s): R10.13 - EPIGASTRIC PAIN (5) GERD (gastroesophageal reflux disease) Code(s): K21.9 - GASTRO-ESOPHAGEAL REFLUX DISEASE WITHOUT ESOPHAGITIS (6) HTN (hypertension) Code(s): I10 - ESSENTIAL (PRIMARY) HYPERTENSION (7) Atypical chest pain Code(s): R07.89 - OTHER CHEST PAIN Assessment/Plan CT SCAN SHOWS RENAL COLIC 3MM UNLIKELY CAUSE OF PAIN GI CONSULT RECOMMENDING ENDOSCOPY HIDA SCAN TODAY R/O PUD VS OTHER DIABETIC LOW SODIUM DIET IVF BGM CHECKS IV PPI/REGLAN
[2019-02-28] MEDS ORDERED: PT OWN MED DRAWER 7, Y5N ONE ×2 (11:38→21:29)
[2019-02-28] MEDS: LISINOPRIL 5 MG TABLET (FP) PO SCH (11:48)
[2019-02-28] MEDS: ASPIRIN COATED 81 MG TABLET.EC PO SCH (11:48)
[2019-02-28] MEDS: ACETAMINOPHEN 1000 MG/100 ML VIAL (NON FORMULARY) IVPB PRN ×2 (11:51→23:35)
[2019-02-28] MEDS: AMOXICILLIN 250 MG CAPSULE PO SCH ×2 (11:52→21:35)
[2019-02-28] MEDS: PANTOPRAZOLE SODIUM 40 MG VIAL IVPB SCH (11:55)
--- NOTE | 2019-02-28 13:06 | PN ---
Progress Note, Physician History of Present Illness: Pt seen and examined at bedside. She is awake and alert. She still has abdominal pain. - Current Medication List Current Medications: Active Medications Acetaminophen (Ofirmev Injection -) 1,000 mg IVPB Q6H PRN PRN Reason: PAIN 5-10 Last Admin: 02/28/19 11:51 Dose: 1,000 mg Amoxicillin (Amoxicillin -) 250 mg PO BID [facility] Last Admin: 02/28/19 11:52 Dose: 250 mg Aspirin (Ecotrin -) 81 mg PO DAILY [facility] Last Admin: 02/28/19 11:48 Dose: 81 mg Gabapentin (Neurontin -) 600 mg PO TID [facility] Last Admin: 02/28/19 05:19 Dose: Not Given Dextrose/Sodium Chloride (D5-Ns -) 1,000 mls @ 42 mls/hr IV ASDIR [facility] Last Admin: 02/27/19 17:19 Dose: Not Given Insulin Aspart (Novolog Vial Sliding Scale -) 1 vial SQ ACHS [facility]; Protocol Last Admin: 02/28/19 12:28 Dose: Not Given Lisinopril (Prinivil) 2.5 mg PO DAILY [facility] Last Admin: 02/28/19 11:48 Dose: 2.5 mg Ondansetron HCl (Zofran Injection) 4 mg IVPB Q6H [facility] Last Admin: 02/28/19 11:55 Dose: 4 mg Pantoprazole Sodium (Protonix Iv) 40 mg IVPB DAILY [facility] Last Admin: 02/28/19 11:55 Dose: 40 mg - Objective Vital Signs: Vital Signs Temperature 98 F 02/28/19 06:49 Pulse Rate 75 02/28/19 06:49 Respiratory Rate 20 02/28/19 06:49 Blood Pressure 110/54 L 02/28/19 06:49 O2 Sat by Pulse Oximetry (%) 94 L 02/27/19 21:00 Constitutional: Yes: Calm Eyes: Yes: Conjunctiva Clear HENT: Yes: Atraumatic Neck: Yes: Supple Cardiovascular: Yes: S1, S2 Respiratory: Yes: CTA Bilaterally Gastrointestinal: Yes: Soft Genitourinary: Yes: WNL Musculoskeletal: Yes: WNL Edema: No Neurological: Yes: Oriented Psychiatric: Yes: Oriented Labs: CBC, BMP 02/27/19 06:30 02/27/19 06:30 INR, PTT INR 1.02 (0.83-1.09) 02/26/19 16:02 Problem List - Problems (1) Nephrolithiasis Code(s): N20.0 - CALCULUS OF KIDNEY (2) Diabetes mellitus Code(s): E11.9 - TYPE 2 DIABETES MELLITUS WITHOUT COMPLICATIONS (3) Epigastric pain Code(s): R10.13 - EPIGASTRIC PAIN (4) GERD (gastroesophageal reflux disease) Code(s): K21.9 - GASTRO-ESOPHAGEAL REFLUX DISEASE WITHOUT ESOPHAGITIS (5) HTN (hypertension) Code(s): I10 - ESSENTIAL (PRIMARY) HYPERTENSION Assessment/Plan Current Medications Generic Name Dose Route Start Last Admin Trade Name Freq PRN Reason Stop Dose Admin Acetaminophen 1,000 mg 02/27/19 13:05 02/28/19 11:51 Ofirmev Injection - IVPB 1,000 mg Q6H PRN Administration PAIN 5-10 Amoxicillin 250 mg 02/26/19 22:00 02/28/19 11:52 Amoxicillin - PO 250 mg BID [facility] Administration Aspirin 81 mg 02/27/19 10:00 02/28/19 11:48 Ecotrin - PO 81 mg DAILY [facility] Administration Gabapentin 600 mg 02/26/19 22:00 02/28/19 05:19 Neurontin - PO Not Given TID [facility] Dextrose/Sodium Chloride 1,000 mls @ 42 mls/hr 02/26/19 17:00 02/27/19 17:19 D5-Ns - IV Not Given ASDIR [facility] Insulin Aspart 1 vial 02/26/19 22:00 02/28/19 12:28 Novolog Vial Sliding Scale - SQ Not Given ACHS [facility] Protocol Lisinopril 2.5 mg 02/27/19 10:00 02/28/19 11:48 Prinivil PO 2.5 mg DAILY [facility] Administration Ondansetron HCl 4 mg 02/27/19 15:45 02/28/19 11:55 Zofran Injection IVPB 4 mg Q6H [facility] Administration Pantoprazole Sodium 40 mg 02/27/19 10:00 02/28/19 11:55 Protonix Iv IVPB 40 mg DAILY [facility] Administration Impression 1. nehrolithiasis - 3 mm right calculus 2. abdominal pain 3. hx of back surgery 4. DM 5. HTN 6. gerd Plan - no new labs - unlikely pain from her stone - GI workup - on abx for osteo/infected hardware - check cultures - can have stone workup after discharge, recommend low salt diet and adequate volume intake
--- NOTE | 2019-02-28 15:26 | PN.GI ---
GI Progress Note Subjective: Pt seen/examined at bedside, pts son present. Pt still with intermittent upper abdominal pain and nausea, with limited po intake. Tolerated juice. Had HIDA scan today (results pending). - Objective Vital Signs: Vital Signs Temperature 97.9 F 02/28/19 14:47 Pulse Rate 93 H 02/28/19 14:47 Respiratory Rate 18 02/28/19 14:47 Blood Pressure 113/69 02/28/19 14:47 O2 Sat by Pulse Oximetry (%) 94 L 02/27/19 21:00 Constitutional: Well Nourished, No Distress, Calm Respiratory: Yes: WNL, Regular, CTA Bilaterally Gastrointestinal Inspection: Yes: WNL ...Palpate: Yes: Other (Abd soft, mildly tender in epigastrium on palpation, non distended) Labs: CBC, BMP 02/27/19 06:30 02/27/19 06:30 INR, PTT INR 1.02 (0.83-1.09) 02/26/19 16:02 Problem List - Problems (1) Epigastric pain Assessment/Plan: 73yo female h/o HTN, poorly controlled DM (HBA1C 8.4) presenting with upper abdominal pain, early satiety and nausea for 5-6 months. EGD on 01/18/[address] Vasquez in [place] ([place]) revealing distal esophageal erythema, abnormal motility, small hiatal hernia, chronic gastritis otherwise normal exam, biopsies taken (results not available). While likely component of reflux/ gastritis cannot exclude underlying gastroparesis vs functional or nonulcer dyspepsia. HIDA scan results pending r/o biliary dyskinesia. LFTs normal. -Continue PPI daily -Continue to optimize glycemic control -Diet as tolerated with small, frequent low fat, low fiber meals -Antireflux measures advised including elevating HOB and to avoid lying down for 2-3 hours after meals -Await final results of HIDA scan (preliminary unremarkable, D/w Dr. Rodriguez)) as requested per surgery -Would recommend gastric emptying study to r/o gastroparesis though per nuclear med staff not done as inpatient therefore can be pursued as outpt (per pts son she has not been taking reglan at home, and gabapentin may also be exacerbating symptoms) -Avoid narcotics -Will also need to try to obtain EGD pathology results from Dr. Vasquez's office in [place] Code(s): R10.13 - EPIGASTRIC PAIN
[2019-02-28 16:08] VITALS: BMI 28.5
[2019-02-28] MEDS: DEXTROSE 5%-NORMAL SALINE 1,000 ML IV SCH (21:36)
[2019-02-28] MEDS ORDERED: SENNOSIDES 8.6MG TABLET (FP) PO PRN (23:47)
[2019-03-01] MEDS: DOCUSATE SODIUM 100 MG CAPSULE (FP) PO PRN ×2 (02:40→11:37)
[2019-03-01] MEDS: ONDANSETRON 4 MG/2 ML VIAL IVPB SCH ×2 (03:32→09:52)
[2019-03-01] MEDS: GABAPENTIN 300 MG CAPSULE (FP) PO SCH ×3 (05:29→22:11)
[2019-03-01] MEDS: INSULIN SLIDING SCALE (NOVOLOG) 1 VIAL SQ SCH ×4 (06:28→22:13)
[2019-03-01] MEDS: DEXTROSE 5%-NORMAL SALINE 1,000 ML IV SCH ×2 (08:46→17:31)
--- NOTE | 2019-03-01 09:14 | PN.GI ---
GI Progress Note Subjective: No acute events Abdominal pain improved however complains of nausea Was eating bread and butter this morning HIDA unrevealing. did reveal delayed biliary enteric transit of tracer that could be seen in chronic cholecystitis - Objective Vital Signs: Vital Signs Temperature 98.1 F 03/01/19 06:56 Pulse Rate 64 03/01/19 06:56 Respiratory Rate 20 03/01/19 06:56 Blood Pressure 100/52 L 03/01/19 06:56 O2 Sat by Pulse Oximetry (%) 92 L 02/28/19 21:00 Constitutional: Calm Eyes: No: Sclera Icterus HENT: Yes: Drooling Cardiovascular: Yes: Regular Rate and Rhythm Respiratory: Yes: CTA Bilaterally Gastrointestinal Inspection: No: Distention ...Auscultate: Yes: Normoactive Bowel Sounds ...Palpate: Yes: Soft. No: Hepatomegaly, Splenomegaly, Tenderness ...Percussion: No: Tympanitic Edema: No (No LE edema) Neurological: Yes: Alert Labs: CBC, BMP 02/27/19 06:30 02/27/19 06:30 INR, PTT INR 1.02 (0.83-1.09) 02/26/19 16:02 Problem List - Problems (1) Nausea & vomiting Assessment/Plan: with associated abdominal pain: poor glycemic control reported. Patient states that she has been taking reglan prior to meals or else the "food stays" Tolerating PO this morning As gastric emptying study not performed in inpatient setting, resume motility agent Ordered abdominal US and UGIS for AM On Amoxicillin BID chronically for 2-3 years secondary to ? chronic osteo. Clarification regarding continued need would be needed and eliminate if medically feasible. Eliminate gabapentin as feasible. Adavised avoidance of Diclofenac cream and other NSAIDs Left message with Dr. Mika Vasquez's office to obtain pathology results Code(s): R11.2 - NAUSEA WITH VOMITING, UNSPECIFIED
[2019-03-01] MEDS: PANTOPRAZOLE SODIUM 40 MG VIAL IVPB SCH (09:52)
[2019-03-01] MEDS: LISINOPRIL 5 MG TABLET (FP) PO SCH (09:52)
[2019-03-01] MEDS: ASPIRIN COATED 81 MG TABLET.EC PO SCH (09:52)
[2019-03-01] MEDS: ACETAMINOPHEN 1000 MG/100 ML VIAL (NON FORMULARY) IVPB PRN ×2 (09:53→23:21)
[2019-03-01] MEDS: METOCLOPRAMIDE HCL INJECTION 10 MG/2 ML VIAL IVPB SCH ×3 (10:09→22:11)
--- NOTE | 2019-03-01 10:36 | PN ---
Progress Note, Physician Chief Complaint: Abdominal Pain GERD History of Present Illness: Previous notes and eventes reviewed awake and alert NAD complain of epigastric pain with nausea - Current Medication List Current Medications: Active Medications Acetaminophen (Ofirmev Injection -) 1,000 mg IVPB Q6H PRN PRN Reason: PAIN 5-10 Last Admin: 03/01/19 09:53 Dose: 1,000 mg Amoxicillin (Amoxicillin -) 250 mg PO BID [facility] Aspirin (Ecotrin -) 81 mg PO DAILY [facility] Last Admin: 03/01/19 09:52 Dose: 81 mg Docusate Sodium (Colace -) 100 mg PO Q8H PRN PRN Reason: CONSTIPATION Last Admin: 03/01/19 02:40 Dose: 100 mg Gabapentin (Neurontin -) 600 mg PO TID [facility] Last Admin: 03/01/19 05:29 Dose: 600 mg Dextrose/Sodium Chloride (D5-Ns -) 1,000 mls @ 42 mls/hr IV ASDIR [facility] Last Admin: 03/01/19 08:46 Dose: 42 mls/hr Insulin Aspart (Novolog Vial Sliding Scale -) 1 vial SQ ACHS [facility]; Protocol Last Admin: 03/01/19 06:28 Dose: Not Given Lisinopril (Prinivil) 2.5 mg PO DAILY [facility] Last Admin: 03/01/19 09:52 Dose: 2.5 mg Metoclopramide HCl (Reglan Injection -) 10 mg IVPB TID [facility] Last Admin: 03/01/19 10:09 Dose: Not Given Pantoprazole Sodium (Protonix Iv) 40 mg IVPB DAILY [facility] Last Admin: 03/01/19 09:52 Dose: 40 mg Senna (Senna -) 2 tab PO HS PRN PRN Reason: CONSTIPATION - Objective Vital Signs: Vital Signs Temperature 98.1 F 03/01/19 06:56 Pulse Rate 64 03/01/19 06:56 Respiratory Rate 20 03/01/19 06:56 Blood Pressure 100/52 L 03/01/19 06:56 O2 Sat by Pulse Oximetry (%) 92 L 02/28/19 21:00 Constitutional: Yes: No Distress, Calm Eyes: Yes: Conjunctiva Clear HENT: Yes: Atraumatic Cardiovascular: Yes: Regular Rate and Rhythm Respiratory: Yes: Regular, CTA Bilaterally Gastrointestinal: Yes: Normal Bowel Sounds, Soft Musculoskeletal: Yes: Muscle Weakness Extremities: Yes: WNL Edema: No Neurological: Yes: Alert, Oriented Psychiatric: Yes: Alert, Oriented Labs: CBC, BMP 02/27/19 06:30 02/27/19 06:30 INR, PTT INR 1.02 (0.83-1.09) 02/26/19 16:02 Problem List - Problems (1) HTN (hypertension) Assessment/Plan: -continue Lisinopril -low Na diet Code(s): I10 - ESSENTIAL (PRIMARY) HYPERTENSION (2) GERD (gastroesophageal reflux disease) Assessment/Plan: -Pantoprazole IVPB daily -GI on board -zofran IVPB for nausea -Reglan IVPB -GI series and Abdominal US scheduled for 03/02/19--NPO after midnight Code(s): K21.9 - GASTRO-ESOPHAGEAL REFLUX DISEASE WITHOUT ESOPHAGITIS (3) Diabetes mellitus Assessment/Plan: -BGM AC HS -ISS -HgA1c 8.4% -diabetic diet Code(s): E11.9 - TYPE 2 DIABETES MELLITUS WITHOUT COMPLICATIONS (4) Epigastric pain Assessment/Plan: -Abd/Pelvic CT scan shows 3mm nonobstructing R renal calculus, no pneumoperitoneum, abscess, free intraperitoneal fluid, or obstruction -HIDA scan shows filling of the gallbladder excludes cystic duct obstruction, non specific delayed biliary enteric transit of tracer which can be seen with chronic cholecystitis and biliary dyskinesia -Pantoprazole IVPB daily -GI on board -zofran for nausea -reglan IVPB -surgery on board -amylase and lipase nl -scheduled for GI series and ABdominal US--NPO after midnight -D5 0.9% NS at 42cc/hr Code(s): R10.13 - EPIGASTRIC PAIN (5) Atypical chest pain Assessment/Plan: -EKG -troponin neg Code(s): R07.89 - OTHER CHEST PAIN (6) Renal colic Assessment/Plan: -Renal on board -BUN/Cr 6/0.5 -stone management as outpatient Code(s): N23 - UNSPECIFIED RENAL COLIC (7) Gastroparesis Assessment/Plan: -GI on board -scheduled for GI series tomorrow -when discharged will go home with PO Reglan, due to risk of toxicity will take medication for 4 weeks with 2 week intermittent break inbetween Code(s): K31.84 - GASTROPARESIS Assessment/Plan see problem list dvt ppx patient will be discharged home after GI series tomorrow
[2019-03-01] MEDS ORDERED: PT OWN MED DRAWER 7, Y5N ONE ×2 (10:49→21:09)
[2019-03-01] MEDS: AMOXICILLIN 250 MG CAPSULE PO SCH ×2 (10:51→22:11)
[2019-03-01] MEDS: POLYETHYLENE GLYCOL 3350 119 GM BTL PO SCH (11:33)
--- NOTE | 2019-03-01 13:54 | PN ---
Progress Note, Physician History of Present Illness: Pt seen and examined at bedside. She is tolerating diet today. - Current Medication List Current Medications: Active Medications Acetaminophen (Ofirmev Injection -) 1,000 mg IVPB Q6H PRN PRN Reason: PAIN 5-10 Last Admin: 03/01/19 09:53 Dose: 1,000 mg Amoxicillin (Amoxicillin -) 250 mg PO BID [facility] Last Admin: 03/01/19 10:51 Dose: 250 mg Aspirin (Ecotrin -) 81 mg PO DAILY [facility] Last Admin: 03/01/19 09:52 Dose: 81 mg Docusate Sodium (Colace -) 100 mg PO Q8H PRN PRN Reason: CONSTIPATION Last Admin: 03/01/19 11:37 Dose: 100 mg Gabapentin (Neurontin -) 600 mg PO TID [facility] Last Admin: 03/01/19 13:09 Dose: 600 mg Dextrose/Sodium Chloride (D5-Ns -) 1,000 mls @ 42 mls/hr IV ASDIR [facility] Last Admin: 03/01/19 08:46 Dose: 42 mls/hr Insulin Aspart (Novolog Vial Sliding Scale -) 1 vial SQ ACHS [facility]; Protocol Last Admin: 03/01/19 11:41 Dose: 4 units Lisinopril (Prinivil) 2.5 mg PO DAILY [facility] Last Admin: 03/01/19 09:52 Dose: 2.5 mg Metoclopramide HCl (Reglan Injection -) 10 mg IVPB TID [facility] Last Admin: 03/01/19 13:09 Dose: 10 mg Pantoprazole Sodium (Protonix Iv) 40 mg IVPB DAILY [facility] Last Admin: 03/01/19 09:52 Dose: 40 mg Polyethylene Glycol (Miralax (For Daily Use) -) 17 gm PO DAILY [facility] Last Admin: 03/01/19 11:33 Dose: Not Given Senna (Senna -) 2 tab PO HS PRN PRN Reason: CONSTIPATION - Objective Vital Signs: Vital Signs Temperature 97.5 F L 03/01/19 10:00 Pulse Rate 98 H 03/01/19 10:00 Respiratory Rate 20 03/01/19 10:00 Blood Pressure 121/70 03/01/19 10:00 O2 Sat by Pulse Oximetry (%) 92 L 02/28/19 21:00 Constitutional: Yes: Calm Eyes: Yes: Conjunctiva Clear HENT: Yes: Atraumatic Neck: Yes: Supple Cardiovascular: Yes: S1, S2 Respiratory: Yes: CTA Bilaterally Gastrointestinal: Yes: Soft Genitourinary: Yes: WNL Extremities: Yes: WNL Edema: No Neurological: Yes: Oriented Psychiatric: Yes: Oriented Labs: CBC, BMP 02/27/19 06:30 02/27/19 06:30 INR, PTT INR 1.02 (0.83-1.09) 02/26/19 16:02 Problem List - Problems (1) Nephrolithiasis Code(s): N20.0 - CALCULUS OF KIDNEY (2) Diabetes mellitus Code(s): E11.9 - TYPE 2 DIABETES MELLITUS WITHOUT COMPLICATIONS (3) Epigastric pain Code(s): R10.13 - EPIGASTRIC PAIN (4) GERD (gastroesophageal reflux disease) Code(s): K21.9 - GASTRO-ESOPHAGEAL REFLUX DISEASE WITHOUT ESOPHAGITIS (5) HTN (hypertension) Code(s): I10 - ESSENTIAL (PRIMARY) HYPERTENSION Assessment/Plan Current Medications Generic Name Dose Route Start Last Admin Trade Name Parishq PRN Reason Stop Dose Admin Acetaminophen 1,000 mg 02/27/19 13:05 03/01/19 09:53 Ofirmev Injection - IVPB 1,000 mg Q6H PRN Administration PAIN 5-10 Amoxicillin 250 mg 03/01/19 10:00 03/01/19 10:51 Amoxicillin - PO 250 mg BID [facility] Administration Aspirin 81 mg 02/27/19 10:00 03/01/19 09:52 Ecotrin - PO 81 mg DAILY [facility] Administration Docusate Sodium 100 mg 02/28/19 23:47 03/01/19 11:37 Colace - PO 100 mg Q8H PRN Administration CONSTIPATION Gabapentin 600 mg 02/26/19 22:00 03/01/19 13:09 Neurontin - PO 600 mg TID [facility] Administration Dextrose/Sodium Chloride 1,000 mls @ 42 mls/hr 02/26/19 17:00 03/01/19 08:46 D5-Ns - IV 42 mls/hr ASDIR [facility] Administration Insulin Aspart 1 vial 02/26/19 22:00 03/01/19 11:41 Novolog Vial Sliding Scale - SQ 4 units ACHS [facility] Administration Protocol Lisinopril 2.5 mg 02/27/19 10:00 03/01/19 09:52 Prinivil PO 2.5 mg DAILY [facility] Administration Metoclopramide HCl 10 mg 03/01/19 09:45 03/01/19 13:09 Reglan Injection - IVPB 10 mg TID [facility] Administration Pantoprazole Sodium 40 mg 02/27/19 10:00 03/01/19 09:52 Protonix Iv IVPB 40 mg DAILY [facility] Administration Polyethylene Glycol 17 gm 03/01/19 11:00 03/01/19 11:33 Miralax (For Daily Use) - PO Not Given DAILY [facility] Senna 2 tab 02/28/19 23:47 Senna - PO HS PRN CONSTIPATION Impression 1. nehrolithiasis - 3 mm right calculus 2. abdominal pain 3. hx of back surgery 4. DM 5. HTN 6. gerd Plan - check bmp - follow blood and urine cultures - GI input appreciated - nephrolothiasis studies can be done as outpt
[2019-03-02] MEDS: GABAPENTIN 300 MG CAPSULE (FP) PO SCH ×2 (05:20→13:07)
[2019-03-02] MEDS: METOCLOPRAMIDE HCL INJECTION 10 MG/2 ML VIAL IVPB SCH ×2 (05:20→13:07)
[2019-03-02] MEDS: INSULIN SLIDING SCALE (NOVOLOG) 1 VIAL SQ SCH ×2 (06:01→11:27)
[2019-03-02 08:22] LABS: ALBUMIN 2.7 g/dl (3.4-5.0); ALK PHOS 82 U/L (45-117); ANION GAP 5 MMOL/L (8-16); BILIRUBIN,TOTAL 0.3 mg/dL (0.2-1); BLOOD UREA NITROGEN 5 mg/dL (7-18); CALCIUM 8.6 mg/dL (8.5-10.1); CHLORIDE 107 mmol/L (98-107); CO2 30 mmol/L (21-32); CREATININE 0.5 mg/dL (0.55-1.3); GLUCOSE,RANDOM 172 mg/dL (74-106); SGOT/AST 15 U/L (15-37); SGPT/ALT 19 U/L (13-61); SODIUM 142 mmol/L (136-145); TOT PROT 5.4 g/dl (6.4-8.2)
[2019-03-02] MEDS: LISINOPRIL 5 MG TABLET (FP) PO SCH (10:14)
[2019-03-02] MEDS: ASPIRIN COATED 81 MG TABLET.EC PO SCH (10:15)
[2019-03-02] MEDS: AMOXICILLIN 250 MG CAPSULE PO SCH (10:15)
[2019-03-02] MEDS: PANTOPRAZOLE SODIUM 40 MG VIAL IVPB SCH (10:16)
[2019-03-02] MEDS: POLYETHYLENE GLYCOL 3350 119 GM BTL PO SCH (10:16)
--- NOTE | 2019-03-02 11:20 | PN.GI ---
GI Progress Note Subjective: Continued pain and nausea. Describes pain as bandlike, starting from the back and flanks and radiating to the abdomen - Objective Vital Signs: Vital Signs Temperature 97.7 F 03/02/19 06:34 Pulse Rate 68 03/02/19 06:34 Respiratory Rate 20 03/02/19 09:00 Blood Pressure 114/53 L 03/02/19 06:34 O2 Sat by Pulse Oximetry (%) 98 03/02/19 09:00 Constitutional: Calm Cardiovascular: Yes: Regular Rate and Rhythm Gastrointestinal Inspection: No: Distention ...Auscultate: Yes: Normoactive Bowel Sounds ...Palpate: Yes: Soft. No: Tenderness ...Percussion: No: Tympanitic Musculoskeletal: Yes: Other (tendeness upon palpation along right thoracic pravertebrals and along lower ribs) Labs: CBC, BMP 02/27/19 06:30 03/02/19 07:00 INR, PTT INR 1.02 (0.83-1.09) 02/26/19 16:02 Problem List - Problems (1) Nausea & vomiting Assessment/Plan: No vomiting Await UGI and US results Given description of pain as band-like and originating from back, tenderness along paravertebrals noted on exam and given significant thoracic spine surgery history, ? if this is neurogenic in nature Patient's son would like further evaluation of his mother's spine. I asked that she discuss this with Dr. Robison or his covering provider. Await US and UGIS result Protonix 40mg once daily Glycemic control Outpatient sold gastric emptying study Continue reglan for now Dietary evaluation to discuss gastroparesis diet modifications with patient and her family Outpatient follow-up with her supervisor [employer]. I had left message with her gastroentrologist's office to discuss pathology results. Have not received call back as of yet. Code(s): R11.2 - NAUSEA WITH VOMITING, UNSPECIFIED
--- NOTE | 2019-03-02 12:06 | PN ---
Progress Note, Physician History of Present Illness: Pt seen and examined at bedside. She is awake and alert. She denies shortness of breath. She says that the pain is unchanged. She denies dysuria or hematuria. - Current Medication List Current Medications: Active Medications Acetaminophen (Ofirmev Injection -) 1,000 mg IVPB Q6H PRN PRN Reason: PAIN 5-10 Last Admin: 03/01/19 23:21 Dose: 1,000 mg Amoxicillin (Amoxicillin -) 250 mg PO BID [facility] Last Admin: 03/02/19 10:15 Dose: 250 mg Aspirin (Ecotrin -) 81 mg PO DAILY [facility] Last Admin: 03/02/19 10:15 Dose: 81 mg Docusate Sodium (Colace -) 100 mg PO Q8H PRN PRN Reason: CONSTIPATION Last Admin: 03/01/19 11:37 Dose: 100 mg Gabapentin (Neurontin -) 600 mg PO TID [facility] Last Admin: 03/02/19 05:20 Dose: 600 mg Dextrose/Sodium Chloride (D5-Ns -) 1,000 mls @ 42 mls/hr IV ASDIR [facility] Last Admin: 03/01/19 17:31 Dose: Not Given Insulin Aspart (Novolog Vial Sliding Scale -) 1 vial SQ ACHS [facility]; Protocol Last Admin: 03/02/19 11:27 Dose: Not Given Lisinopril (Prinivil) 2.5 mg PO DAILY [facility] Last Admin: 03/02/19 10:14 Dose: 2.5 mg Metoclopramide HCl (Reglan Injection -) 10 mg IVPB TID [facility] Last Admin: 03/02/19 05:20 Dose: 10 mg Pantoprazole Sodium (Protonix Iv) 40 mg IVPB DAILY [facility] Last Admin: 03/02/19 10:16 Dose: 40 mg Polyethylene Glycol (Miralax (For Daily Use) -) 17 gm PO DAILY [facility] Last Admin: 03/02/19 10:16 Dose: Not Given Senna (Senna -) 2 tab PO HS PRN PRN Reason: CONSTIPATION - Objective Vital Signs: Vital Signs Temperature 97.7 F 03/02/19 06:34 Pulse Rate 68 03/02/19 06:34 Respiratory Rate 20 03/02/19 09:00 Blood Pressure 114/53 L 03/02/19 06:34 O2 Sat by Pulse Oximetry (%) 98 03/02/19 09:00 Constitutional: Yes: Calm Eyes: Yes: Conjunctiva Clear HENT: Yes: Atraumatic Neck: Yes: Supple Cardiovascular: Yes: S1, S2 Respiratory: Yes: CTA Bilaterally Gastrointestinal: Yes: Soft. No: Tenderness Genitourinary: Yes: WNL Edema: No Neurological: Yes: Oriented Psychiatric: Yes: Oriented Labs: CBC, BMP 02/27/19 06:30 03/02/19 07:00 INR, PTT INR 1.02 (0.83-1.09) 02/26/19 16:02 Problem List - Problems (1) Nephrolithiasis Code(s): N20.0 - CALCULUS OF KIDNEY (2) Diabetes mellitus Code(s): E11.9 - TYPE 2 DIABETES MELLITUS WITHOUT COMPLICATIONS (3) Epigastric pain Code(s): R10.13 - EPIGASTRIC PAIN (4) GERD (gastroesophageal reflux disease) Code(s): K21.9 - GASTRO-ESOPHAGEAL REFLUX DISEASE WITHOUT ESOPHAGITIS (5) HTN (hypertension) Code(s): I10 - ESSENTIAL (PRIMARY) HYPERTENSION Assessment/Plan Current Medications Generic Name Dose Route Start Last Admin Trade Name Freq PRN Reason Stop Dose Admin Acetaminophen 1,000 mg 02/27/19 13:05 03/01/19 23:21 Ofirmev Injection - IVPB 1,000 mg Q6H PRN Administration PAIN 5-10 Amoxicillin 250 mg 03/01/19 10:00 03/02/19 10:15 Amoxicillin - PO 250 mg BID [facility] Administration Aspirin 81 mg 02/27/19 10:00 03/02/19 10:15 Ecotrin - PO 81 mg DAILY [facility] Administration Docusate Sodium 100 mg 02/28/19 23:47 03/01/19 11:37 Colace - PO 100 mg Q8H PRN Administration CONSTIPATION Gabapentin 600 mg 02/26/19 22:00 03/02/19 05:20 Neurontin - PO 600 mg TID [facility] Administration Dextrose/Sodium Chloride 1,000 mls @ 42 mls/hr 02/26/19 17:00 03/01/19 17:31 D5-Ns - IV Not Given ASDIR [facility] Insulin Aspart 1 vial 02/26/19 22:00 03/02/19 11:27 Novolog Vial Sliding Scale - SQ Not Given ACHS [facility] Protocol Lisinopril 2.5 mg 02/27/19 10:00 03/02/19 10:14 Prinivil PO 2.5 mg DAILY [facility] Administration Metoclopramide HCl 10 mg 03/01/19 09:45 03/02/19 05:20 Reglan Injection - IVPB 10 mg TID [facility] Administration Pantoprazole Sodium 40 mg 02/27/19 10:00 03/02/19 10:16 Protonix Iv IVPB 40 mg DAILY [facility] Administration Polyethylene Glycol 17 gm 03/01/19 11:00 03/02/19 10:16 Miralax (For Daily Use) - PO Not Given DAILY [facility] Senna 2 tab 02/28/19 23:47 Senna - PO HS PRN CONSTIPATION Microbiology 02/28/19 22:35 Urine - Urine Clean Catch Urine Culture - Final NO GROWTH OBTAINED 02/28/19 13:44 Blood - Peripheral Venous Blood Culture - Preliminary NO GROWTH OBTAINED AFTER 24 HOURS, INCUBATION TO CONTINUE FOR 4 DAYS. 02/28/19 13:38 Blood - Peripheral Venous Blood Culture - Preliminary NO GROWTH OBTAINED AFTER 24 HOURS, INCUBATION TO CONTINUE FOR 4 DAYS. Laboratory Tests 03/02/19 07:00 Creatinine 0.5 L Impression 1. nehrolithiasis - 3 mm right calculus 2. abdominal pain 3. hx of back surgery 4. DM 5. HTN 6. gerd Plan - renal function stable - cultures neg so far - neurosurg pending - GI workup in progress - pain unlikely from kidney stone - will follow PRN - discussed with son at bedside
[2019-03-02 13:18] VITALS: BP 133/69; PULSE 98; TEMP 97.4
--- NOTE | 2019-03-02 14:28 | PN ---
Progress Note (short form) - Note Progress Note: Abd US read: Fatty liver, right renal cyst. Evaluation of renal cyst per primary team Awaiting UGIS report Problem List - Problems (1) Nausea & vomiting Code(s): R11.2 - NAUSEA WITH VOMITING, UNSPECIFIED
--- NOTE | 2019-03-02 15:58 | DS ---
Physical Examination Vital Signs: Vital Signs Temperature 97.4 F L 03/02/19 14:00 Pulse Rate 98 H 03/02/19 14:00 Respiratory Rate 20 03/02/19 14:00 Blood Pressure 133/69 03/02/19 14:00 O2 Sat by Pulse Oximetry (%) 98 03/02/19 09:00 Findings/Remarks: Patient is a 73 y/o female with past medical history of HTN, HLD, DM, GERD, peripheral neuropathy. Patient presented to ER from PCP office with complaints of abdominal pain accompanied with nausea x 5 months. Abdominal pain radiates to chest and back and is exacerbated with food. Patient has been taking Omeprazole but does not relieve abdominal pain. Patient is followed by GI Dr. Vasquez and as per patient endoscopy performed 2 months ago, no report available for review. Constitutional: Yes: No Distress, Calm Eyes: Yes: Conjunctiva Clear HENT: Yes: Atraumatic Cardiovascular: Yes: Regular Rate and Rhythm Respiratory: Yes: Regular, CTA Bilaterally Gastrointestinal: Yes: Normal Bowel Sounds, Soft Musculoskeletal: Yes: Muscle Weakness Extremities: Yes: WNL Edema: No Neurological: Yes: Alert, Oriented Psychiatric: Yes: Alert, Oriented Labs: CBC, BMP 02/27/19 06:30 03/02/19 07:00 Discharge Summary Reason For Visit: EPIGASTRIC PAIN Current Active Problems Diabetes mellitus (Acute) Epigastric pain (Acute) GERD (gastroesophageal reflux disease) (Acute) Gastroparesis (Acute) HTN (hypertension) (Acute) Nausea & vomiting (Acute) Nephrolithiasis (Acute) Renal colic (Acute) Hospital Course: see progress notes Laboratory Tests 02/26/19 02/26/19 02/26/19 16:02 16:02 16:02 WBC 8.6 RBC 5.08 Hgb 14.0 Hct 43.5 MCV 85.6 MCH 27.5 MCHC 32.1 RDW 14.5 Plt Count 337 MPV 8.7 Absolute Neuts (auto) 6.0 Neutrophils % 69.9 Lymphocytes % 21.8 Monocytes % 6.6 Eosinophils % 0.6 Basophils % 1.1 Nucleated RBC % 0 PT with INR 12.00 INR 1.02 Sodium 136 Potassium 4.4 Chloride 102 Carbon Dioxide 28 Anion Gap 6 L BUN 9 Creatinine 0.7 Creat Clearance w eGFR 82.25 POC Glucometer Random Glucose 279 H Hemoglobin A1c % Calcium 9.1 Phosphorus Magnesium 1.8 Total Bilirubin 0.4 AST 16 ALT 22 Alkaline Phosphatase 119 H Creatine Kinase 54 Troponin I < 0.02 Total Protein 7.5 Albumin 3.6 Total Amylase Lipase 152 TSH Urine Color Urine Appearance Urine pH Ur Specific [place] Urine Protein Urine Glucose (UA) Urine Ketones Urine Blood Urine Nitrite Urine Bilirubin Urine Urobilinogen Ur Leukocyte Esterase Urine WBC (Auto) Urine RBC (Auto) Urine Casts (Auto) U Epithel Cells (Auto) Urine Bacteria (Auto) 02/26/19 02/27/19 02/27/19 22:43 04:39 06:00 WBC RBC Hgb Hct MCV MCH MCHC RDW Plt Count MPV Absolute Neuts (auto) Neutrophils % Lymphocytes % Monocytes % Eosinophils % Basophils % Nucleated RBC % PT with INR INR Sodium Potassium Chloride Carbon Dioxide Anion Gap BUN Creatinine Creat Clearance w eGFR POC Glucometer 97 Random Glucose Hemoglobin A1c % 8.4 H Calcium Phosphorus Magnesium Total Bilirubin AST ALT Alkaline Phosphatase Creatine Kinase Troponin I Total Protein Albumin Total Amylase Lipase TSH Urine Color Yellow Urine Appearance Clear Urine pH 7.5 Ur Specific [place] 1.054 H Urine Protein Negative Urine Glucose (UA) Negative Urine Ketones Negative Urine Blood Negative Urine Nitrite Negative Urine Bilirubin Negative Urine Urobilinogen 0.2 Ur Leukocyte Esterase 1+ H Urine WBC (Auto) 15.8 Urine RBC (Auto) 1.3 Urine Casts (Auto) 2.23 U Epithel Cells (Auto) 20.4 Urine Bacteria (Auto) 72.5 02/27/19 02/27/19 02/27/19 06:15 06:30 06:30 WBC 6.7 RBC 4.29 Hgb 12.0 Hct 36.3 D MCV 84.8 MCH 27.9 MCHC 33.0 RDW 13.8 Plt Count 272 MPV 8.5 Absolute Neuts (auto) 4.2 Neutrophils % 63.1 Lymphocytes % 26.8 D Monocytes % 7.6 Eosinophils % 1.8 D Basophils % 0.7 Nucleated RBC % 0 PT with INR INR Sodium 143 Potassium 4.3 Chloride 109 H Carbon Dioxide 31 Anion Gap 3 L BUN 6 L Creatinine 0.5 L Creat Clearance w eGFR 121.28 POC Glucometer 74 Random Glucose 77 Hemoglobin A1c % Calcium 8.5 Phosphorus 3.8 Magnesium 1.8 Total Bilirubin 0.4 AST 12 L ALT 16 Alkaline Phosphatase 88 Creatine Kinase Troponin I Total Protein 5.9 L Albumin 2.8 L Total Amylase 47 Lipase 99 TSH 0.51 Urine Color Urine Appearance Urine pH Ur Specific [place] Urine Protein Urine Glucose (UA) Urine Ketones Urine Blood Urine Nitrite Urine Bilirubin Urine Urobilinogen Ur Leukocyte Esterase Urine WBC (Auto) Urine RBC (Auto) Urine Casts (Auto) U Epithel Cells (Auto) Urine Bacteria (Auto) 02/27/19 02/27/19 02/27/19 11:29 17:24 21:58 WBC RBC Hgb Hct MCV MCH MCHC RDW Plt Count MPV Absolute Neuts (auto) Neutrophils % Lymphocytes % Monocytes % Eosinophils % Basophils % Nucleated RBC % PT with INR INR Sodium Potassium Chloride Carbon Dioxide Anion Gap BUN Creatinine Creat Clearance w eGFR POC Glucometer 76 187 121 Random Glucose Hemoglobin A1c % Calcium Phosphorus Magnesium Total Bilirubin AST ALT Alkaline Phosphatase Creatine Kinase Troponin I Total Protein Albumin Total Amylase Lipase TSH Urine Color Urine Appearance Urine pH Ur Specific [place] Urine Protein Urine Glucose (UA) Urine Ketones Urine Blood Urine Nitrite Urine Bilirubin Urine Urobilinogen Ur Leukocyte Esterase Urine WBC (Auto) Urine RBC (Auto) Urine Casts (Auto) U Epithel Cells (Auto) Urine Bacteria (Auto) 02/28/19 02/28/19 02/28/19 06:04 12:14 17:34 WBC RBC Hgb Hct MCV MCH MCHC RDW Plt Count MPV Absolute Neuts (auto) Neutrophils % Lymphocytes % Monocytes % Eosinophils % Basophils % Nucleated RBC % PT with INR INR Sodium Potassium Chloride Carbon Dioxide Anion Gap BUN Creatinine Creat Clearance w eGFR POC Glucometer 108 132 208 Random Glucose Hemoglobin A1c % Calcium Phosphorus Magnesium Total Bilirubin AST ALT Alkaline Phosphatase Creatine Kinase Troponin I Total Protein Albumin Total Amylase Lipase TSH Urine Color Urine Appearance Urine pH Ur Specific [place] Urine Protein Urine Glucose (UA) Urine Ketones Urine Blood Urine Nitrite Urine Bilirubin Urine Urobilinogen Ur Leukocyte Esterase Urine WBC (Auto) Urine RBC (Auto) Urine Casts (Auto) U Epithel Cells (Auto) Urine Bacteria (Auto) 02/28/19 03/01/19 03/01/19 21:46 06:00 11:39 WBC RBC Hgb Hct MCV MCH MCHC RDW Plt Count MPV Absolute Neuts (auto) Neutrophils % Lymphocytes % Monocytes % Eosinophils % Basophils % Nucleated RBC % PT with INR INR Sodium Potassium Chloride Carbon Dioxide Anion Gap BUN Creatinine Creat Clearance w eGFR POC Glucometer 247 160 269 Random Glucose Hemoglobin A1c % Calcium Phosphorus Magnesium Total Bilirubin AST ALT Alkaline Phosphatase Creatine Kinase Troponin I Total Protein Albumin Total Amylase Lipase TSH Urine Color Urine Appearance Urine pH Ur Specific [place] Urine Protein Urine Glucose (UA) Urine Ketones Urine Blood Urine Nitrite Urine Bilirubin Urine Urobilinogen Ur Leukocyte Esterase Urine WBC (Auto) Urine RBC (Auto) Urine Casts (Auto) U Epithel Cells (Auto) Urine Bacteria (Auto) 03/01/19 03/01/19 03/02/19 17:29 22:10 05:26 WBC RBC Hgb Hct MCV MCH MCHC RDW Plt Count MPV Absolute Neuts (auto) Neutrophils % Lymphocytes % Monocytes % Eosinophils % Basophils % Nucleated RBC % PT with INR INR Sodium Potassium Chloride Carbon Dioxide Anion Gap BUN Creatinine Creat Clearance w eGFR POC Glucometer 214 251 158 Random Glucose Hemoglobin A1c % Calcium Phosphorus Magnesium Total Bilirubin AST ALT Alkaline Phosphatase Creatine Kinase Troponin I Total Protein Albumin Total Amylase Lipase TSH Urine Color Urine Appearance Urine pH Ur Specific [place] Urine Protein Urine Glucose (UA) Urine Ketones Urine Blood Urine Nitrite Urine Bilirubin Urine Urobilinogen Ur Leukocyte Esterase Urine WBC (Auto) Urine RBC (Auto) Urine Casts (Auto) U Epithel Cells (Auto) Urine Bacteria (Auto) 03/02/19 03/02/19 07:00 12:20 WBC RBC Hgb Hct MCV MCH MCHC RDW Plt Count MPV Absolute Neuts (auto) Neutrophils % Lymphocytes % Monocytes % Eosinophils % Basophils % Nucleated RBC % PT with INR INR Sodium 142 Potassium 4.0 Chloride 107 Carbon Dioxide 30 Anion Gap 5 L BUN 5 L Creatinine 0.5 L Creat Clearance w eGFR 121.28 POC Glucometer 168 Random Glucose 172 H Hemoglobin A1c % Calcium 8.6 Phosphorus Magnesium Total Bilirubin 0.3 AST 15 ALT 19 Alkaline Phosphatase 82 Creatine Kinase Troponin I Total Protein 5.4 L Albumin 2.7 L Total Amylase Lipase TSH Urine Color Urine Appearance Urine pH Ur Specific [place] Urine Protein Urine Glucose (UA) Urine Ketones Urine Blood Urine Nitrite Urine Bilirubin Urine Urobilinogen Ur Leukocyte Esterase Urine WBC (Auto) Urine RBC (Auto) Urine Casts (Auto) U Epithel Cells (Auto) Urine Bacteria (Auto) Active Medications Generic Name Dose Route Start Last Admin Trade Name Freq PRN Reason Stop Dose Admin Acetaminophen 1,000 mg 02/27/19 13:05 03/01/19 23:21 Ofirmev Injection - IVPB 1,000 mg Q6H PRN Administration PAIN 5-10 Amoxicillin 250 mg 03/01/19 10:00 03/02/19 10:15 Amoxicillin - PO 250 mg BID [facility] Administration Aspirin 81 mg 02/27/19 10:00 03/02/19 10:15 Ecotrin - PO 81 mg DAILY [facility] Administration Docusate Sodium 100 mg 02/28/19 23:47 03/01/19 11:37 Colace - PO 100 mg Q8H PRN Administration CONSTIPATION Gabapentin 600 mg 02/26/19 22:00 03/02/19 13:07 Neurontin - PO 600 mg TID ELVIRA Administration Dextrose/Sodium Chloride 1,000 mls @ 42 mls/hr 02/26/19 17:00 03/01/19 17:31 D5-Ns - IV Not Given ASDIR [facility] Insulin Aspart 1 vial 02/26/19 22:00 03/02/19 11:27 Novolog Vial Sliding Scale - SQ Not Given ACHS [facility] Protocol Lisinopril 2.5 mg 02/27/19 10:00 03/02/19 10:14 Prinivil PO 2.5 mg DAILY [facility] Administration Metoclopramide HCl 10 mg 03/01/19 09:45 03/02/19 13:07 Reglan Injection - IVPB 10 mg TID [facility] Administration Pantoprazole Sodium 40 mg 02/27/19 10:00 03/02/19 10:16 Protonix Iv IVPB 40 mg DAILY [facility] Administration Polyethylene Glycol 17 gm 03/01/19 11:00 03/02/19 10:16 Miralax (For Daily Use) - PO Not Given DAILY [facility] Senna 2 tab 02/28/19 23:47 Senna - PO HS PRN CONSTIPATION Microbiology 02/28/19 13:44 Blood - Peripheral Venous Blood Culture - Preliminary NO GROWTH OBTAINED AFTER 48 HOURS, INCUBATION TO CONTINUE FOR 3 DAYS. 02/28/19 13:38 Blood - Peripheral Venous Blood Culture - Preliminary NO GROWTH OBTAINED AFTER 48 HOURS, INCUBATION TO CONTINUE FOR 3 DAYS. 02/28/19 22:35 Urine - Urine Clean Catch Urine Culture - Final NO GROWTH OBTAINED Condition: Stable - Instructions Diet, Activity, Other Instructions: Continue with medication regimen as prescribed follow up with PCP Dr. Robison 03/06/19 at 1pm Reglan 10mg TID 30min before meals, take for 2 weeks then off for 2 weeks then resume until completion return to ER if severe pain, respiratory distress, chest pain, change in mental status Abdominal US shows enlarged liver, please follow up with Dr Vasquez for outpatient chronic liver work up Referrals: Antolin Guthrie DO [Staff Physician] - Yariel Carpenter MD [Staff Physician] - Bassem Trejo MD [Staff Physician] - Disposition: HOME - Home Medications Comprehensive Discharge Medication List: Ambulatory Orders Amoxicillin - [Amoxicillin 250mg Capsule -] 250 mg PO BID 01/02/19 Aspirin [ASA -] 81 mg PO DAILY 01/02/19 Bisoprolol Fumarate 5 mg PO DAILY 01/02/19 Gabapentin 600 mg PO TID 01/02/19 Lisinopril 2.5 mg PO DAILY 01/02/19 Insulin Glargine,Hum.rec.anlog [Lantus Solostar PEN -] 8 units SQ HS 02/26/19 Insulin Glargine,Hum.rec.anlog [Lantus Solostar PEN -] 30 units SQ AM 02/26/19 Simvastatin 20 mg PO DAILY 02/26/19 Amoxicillin - [Amoxicillin 250mg Capsule -] 250 mg PO BID capsule 03/02/19 Aspirin Coated [Ecotrin -] 81 mg PO DAILY tablet.ec 03/02/19 Docusate Sodium [Colace -] 100 mg PO Q8H PRN capsule 03/02/19 Gabapentin [Neurontin -] 600 mg PO TID capsule 03/02/19 Lisinopril [Prinivil] 2.5 mg PO DAILY tablet 03/02/19 Metoclopramide HCl [Reglan -] 10 mg PO TID #90 tablet 03/02/19 Pantoprazole Sodium 40 mg PO DAILY #30 tablet. 03/02/19 Polyethylene Glycol 3350 [Miralax 119 gm Btl -] 17 gm PO DAILY bottle 03/02/19 Sennosides [Senna -] 2 tab PO HS PRN tablet 03/02/19
== END 2019-03-02 16:54 | disposition home or self-care (01) ==
LOC: JER 15:27 → JERBED 17:58 → J8W 02-27 03:29
PROVIDERS: ADMIT Family Medicine; ATTEND Family Medicine
PROC: 3E033NZ Introduction of Analgesics, Hypnotics, Sedatives into Peripheral Vein, Percutaneous Approach (ICD-10-PCS; principal; 2019-02-26)
PROC: 3E0337Z Introduction of Electrolytic and Water Balance Substance into Peripheral Vein, Percutaneous Approach (ICD-10-PCS; 2019-02-26)
PROC: 3E033GC Introduction of Other Therapeutic Substance into Peripheral Vein, Percutaneous Approach (ICD-10-PCS; 2019-02-26)
DX: R10.13 Epigastric pain (principal); R07.89 Other chest pain; I10 Essential (primary) hypertension; E78.5 Hyperlipidemia, unspecified; E11.9 Type 2 diabetes mellitus without complications; G62.9 Polyneuropathy, unspecified; K21.9 Gastro-esophageal reflux disease without esophagitis; N23 Unspecified renal colic; K31.84 Gastroparesis; R11.2 Nausea with vomiting, unspecified; N20.0 Calculus of kidney; K76.0 Fatty (change of) liver, not elsewhere classified; N28.1 Cyst of kidney, acquired; Z79.82 Long term (current) use of aspirin; Z79.4 Long term (current) use of insulin; Z86.79 Personal history of other diseases of the circulatory system
CPT/HCPCS: 36415; 71046-TC-FY; 72070-TC-FY; 72100-TC-FY; 74177-TC; 74240-TC-FY; 76700-TC; 78226-TC; 80053; 81003; 82150; 82550; 82962; 83036; 83690; 83735; 84100; 84436; 84443; 84484; 85025; 85610; 87040; 87086; 93005; 93010; 96361; 96365; 96375; 96376; 99285-25; A9537; G0378; J0131; J7030

== ENCOUNTER 2020-09-20 12:50 | Inpatient (IN) | payer OTHER ==
[2020-09-20] MEDS ORDERED: SODIUM CHLORIDE 2,926 ML IV ONE (13:57)
[2020-09-20] MEDS ORDERED: ACETAMINOPHEN 1000 MG/100 ML VIAL (NON FORMULARY) IVPB ONE (14:10)
[2020-09-20 14:25] LABS: BASO % 1.4 % (0-2.0); HEMOGLOBIN 12.8 GM/dL (10.7-15.3); LYMPH % 12.9 % (8-40); MCH 27.3 pg (25.7-33.7); MCHC 32.8 g/dl (32.0-36.0); MEAN CELL VOLUME 83.1 fl (80-96); MEAN PLT VOLUME 9.8 fl (7.5-11.1); MONO % 4.5 % (3.8-10.2); NEUT % 81.2 % (42.8-82.8); PLATELET COUNT 205 K/MM3 (134-434); RBC 4.69 M/mm3 (3.60-5.2); RDW 14.2 % (11.6-15.6); VENOUS BASE EXCESS 0.9 mmol/L (-2-2); VENOUS O2 SATURATION 40.1 % (70-80); VENOUS PCO2 45.3 mmHg (38-52); VENOUS PH 7.383 (7.310-7.410); WHITE BLOOD COUNT 7.8 K/mm3 (4.0-10.0)
[2020-09-20 14:31] LABS: PROTHROMBIN TIME (PATIENT) 12.3 SEC (9.7-13.0)
[2020-09-20 14:34] LABS: ACTIVATED PTT 28.5 SECONDS (25.2-36.5)
[2020-09-20] MEDS ORDERED: ACETAMINOPHEN INJECTION 100 ML IVPB ONE (14:52)
[2020-09-20 15:00] LABS: CHLORIDE 100 mmol/L (98-107); POTASSIUM 4.8 mmol/L (3.5-5.1); SODIUM 134 mmol/L (136-145)
[2020-09-20 15:04] LABS: THROAT:GRP A STREP ANTIGEN Negative (Negative)
[2020-09-20 15:04] LABS: ALBUMIN 3.1 g/dl (3.4-5.0); CALCIUM 8.7 mg/dL (8.5-10.1)
[2020-09-20 15:05] LABS: ANION GAP 6 MMOL/L (8-16); BLOOD UREA NITROGEN 11.8 mg/dL (7-18); CO2 28 mmol/L (21-32); GLUCOSE,RANDOM 262 mg/dL (74-106)
[2020-09-20 15:08] LABS: CREATININE 0.7 mg/dL (0.55-1.3); SGOT/AST 29 U/L (15-37); SGPT/ALT 22 U/L (13-61)
[2020-09-20 15:09] LABS: BILIRUBIN,TOTAL 0.4 mg/dL (0.2-1); TOT PROT 6.4 g/dl (6.4-8.2)
[2020-09-20 15:11] LABS: ALK PHOS 85 U/L (45-117)
[2020-09-20] MEDS ORDERED: CEFTRIAXONE 1,000 MG in DEXTROSE 5%-WATER - 50 ML IVPB ONE (15:16)
[2020-09-20] MEDS ORDERED: AZITHROMYCIN IVPB 500 MG in DEXTROSE 5%-WATER - 250 ML IVPB ONE (15:16)
[2020-09-20] MEDS ORDERED: CEFTRIAXONE 1 GM/50 ML BAG ONE (16:21)
[2020-09-20] MEDS ORDERED: AZITHROMYCIN IVPB 500 MG/250 ML BAG IVPB ONE (16:21)
[2020-09-20 16:51] LABS: EPI CELLS >36 /uL (0-25.1); HYALINE CASTS 1 /uL (0-3.1); PH,URINE 6.5 (5.0-8.0); URINE APPEARANCE CLEAR; URINE BACTERIA >9,000 /uL (0-1359); URINE BILIRUBIN NEGATIVE (NEGATIVE); URINE COLOR YELLOW; URINE GLUCOSE (UA) 2+ (NEGATIVE); URINE KETONE 1+ (NEGATIVE); URINE LEUK ESTERASE 1+ (NEGATIVE); URINE NITRITE POSITIVE (NEGATIVE); URINE PROTEIN NEGATIVE (NEGATIVE); URINE RBC 9 /uL (0-23.9); URINE UROBILINOGEN 0.2 mg/dL (0.2-1.0); URINE WBC 96 /uL (0-25.8)
[2020-09-20] MEDS ORDERED: DEXAMETHASONE SOD PHOSPHATE 10 MG/1 ML VIAL IVPUSH ONE (17:18)
[2020-09-20 17:53] LABS: LDH 261 U/L (84-246)
[2020-09-20] MEDS ORDERED: DEXAMETHASONE SOD PHOSPHATE 10 MG/1 ML VIAL ONE (18:52)
[2020-09-20] MEDS ORDERED: OSELTAMIVIR PHOSPHATE 75 MG CAPSULE PO SCH (22:00)
[2020-09-20] MEDS ORDERED: ACETAMINOPHEN 325 MG TABLET (FP) PO PRN (22:06)
[2020-09-20] MEDS ORDERED: ACETAMINOPHEN 325 MG TABLET (FP) ONE (22:12)
[2020-09-20] MEDS ORDERED: ASCORBIC ACID 500 MG TABLET (FP) ONE (22:12)
[2020-09-20] MEDS: FAMOTIDINE 20 MG/50 ML IVPB 20 MG/50 ML MG IVPB SCH (22:17)
[2020-09-20] MEDS: ASCORBIC ACID 500 MG TABLET (FP) PO SCH (22:17)
[2020-09-20] MEDS: INSULIN SLIDING SCALE (NOVOLOG) 1 VIAL SQ SCH (22:27)
[2020-09-21] MEDS: OSELTAMIVIR PHOSPHATE 75 MG CAPSULE PO SCH ×3 (00:38→21:30)
[2020-09-21] MEDS ORDERED: MELATONIN 5 MG TABLETS PO ONE (01:17)
[2020-09-21] MEDS ORDERED: INSULIN (NOVOLOG) ASPART 100 UNITS/ML 10ML VIAL ONE ×4 (05:32→21:41)
[2020-09-21] MEDS: INSULIN SLIDING SCALE (NOVOLOG) 1 VIAL SQ SCH ×4 (06:19→21:46)
[2020-09-21] MEDS ORDERED: cefTRIAXone SODIUM 1 GM VIAL ONE (08:45)
[2020-09-21] MEDS ORDERED: DEXTROSE 5%-WATER - 50 ML IVPB ONE (08:45)
[2020-09-21] MEDS ORDERED: INSULIN (LEVEMIR) 100 UNITS/ML UNITS SQ SCH ×3 (08:51→10:50)
[2020-09-21] MEDS: FAMOTIDINE 20 MG/50 ML IVPB 20 MG/50 ML MG IVPB SCH ×2 (09:09→21:22)
[2020-09-21] MEDS: CHOLECALCIFEROL (VIT D3) 1,000 UNIT (25 MCG) TABLET PO SCH (09:15)
[2020-09-21] MEDS: ASCORBIC ACID 500 MG TABLET (FP) PO SCH ×2 (09:16→21:22)
[2020-09-21 09:41] LABS: BASO % 0.3 % (0-2.0); HEMATOCRIT 36.9 % (32.4-45.2); HEMOGLOBIN 11.7 GM/dL (10.7-15.3); LYMPH % 20.6 % (8-40); MCH 26.3 pg (25.7-33.7); MCHC 31.8 g/dl (32.0-36.0); MEAN CELL VOLUME 82.9 fl (80-96); MEAN PLT VOLUME 9.2 fl (7.5-11.1); MONO % 5.9 % (3.8-10.2); NEUT % 73.2 % (42.8-82.8); PLATELET COUNT 151 K/MM3 (134-434); RBC 4.45 M/mm3 (3.60-5.2); RDW 14.1 % (11.6-15.6)
[2020-09-21] MEDS ORDERED: ENOXAPARIN NA (PORCINE) 40 MG/0.4 ML DISP.SYRIN SQ SCH (10:00)
[2020-09-21] MEDS ORDERED: CEFTRIAXONE 1 GM in DEXTROSE 5%-WATER - 50 ML IVPB SCH (10:00)
[2020-09-21] MEDS ORDERED: DEXAMETHASONE SOD PHOSPHATE 10 MG/1 ML VIAL IVPUSH SCH (10:00)
[2020-09-21] MEDS ORDERED: AZITHROMYCIN IVPB 250 MG in DEXTROSE 5%-WATER - 250 ML IVPB SCH (10:00)
[2020-09-21 10:28] LABS: POTASSIUM 4.4 mmol/L (3.5-5.1)
[2020-09-21 10:31] LABS: ALBUMIN 2.7 g/dl (3.4-5.0); BLOOD UREA NITROGEN 10.7 mg/dL (7-18); MAGNESIUM 1.9 mg/dL (1.8-2.4)
[2020-09-21 10:34] LABS: CREATININE 0.6 mg/dL (0.55-1.3)
[2020-09-21 10:35] LABS: BILIRUBIN,TOTAL 0.2 mg/dL (0.2-1)
[2020-09-21] MEDS: INSULIN (LEVEMIR) 100 UNITS/ML UNITS SQ SCH (11:09)
[2020-09-21] MEDS ORDERED: REMDESIVIR 200 MG in SODIUM CHLORIDE 210 ML IVPB ONE (15:07)
[2020-09-21] MEDS: DEXAMETHASONE SOD PHOSPHATE 4 MG/1 ML VIAL IVPUSH SCH (16:02)
[2020-09-21] MEDS: ACETAMINOPHEN 325 MG TABLET (FP) PO PRN (16:36)
[2020-09-21] MEDS: ZINC SULFATE 220 MG CAPSULE (FP) PO SCH (21:22)
[2020-09-21] MEDS: ENOXAPARIN NA (PORCINE) 80 MG/0.8 ML DISP.SYRIN SQ SCH (21:22)
[2020-09-22] MEDS: INSULIN (LEVEMIR) 100 UNITS/ML UNITS SQ SCH ×2 (06:28→22:15)
[2020-09-22] MEDS: INSULIN SLIDING SCALE (NOVOLOG) 1 VIAL SQ SCH ×4 (06:28→22:14)
[2020-09-22 08:22] LABS: BASO % 0.3 % (0-2.0); HEMATOCRIT 38.5 % (32.4-45.2); HEMOGLOBIN 12.2 GM/dL (10.7-15.3); LYMPH % 16.7 % (8-40); MCH 26.3 pg (25.7-33.7); MCHC 31.6 g/dl (32.0-36.0); MEAN CELL VOLUME 83.3 fl (80-96); MEAN PLT VOLUME 9.6 fl (7.5-11.1); MONO % 2.8 % (3.8-10.2); NEUT % 80.2 % (42.8-82.8); PLATELET COUNT 166 K/MM3 (134-434); RBC 4.62 M/mm3 (3.60-5.2); RDW 13.7 % (11.6-15.6); WHITE BLOOD COUNT 5.9 K/mm3 (4.0-10.0)
[2020-09-22 08:40] LABS: POTASSIUM 4.6 mmol/L (3.5-5.1)
[2020-09-22 08:43] LABS: BLOOD UREA NITROGEN 13.2 mg/dL (7-18)
[2020-09-22 08:45] LABS: CREATININE 0.5 mg/dL (0.55-1.3)
[2020-09-22 08:47] LABS: BILIRUBIN,TOTAL 0.2 mg/dL (0.2-1); TOT PROT 6.6 g/dl (6.4-8.2)
[2020-09-22] MEDS ORDERED: PT OWN MED DRAWER 7, Y5N ONE ×3 (08:56→21:15)
[2020-09-22 08:59] LABS: MAGNESIUM 1.9 mg/dL (1.8-2.4)
[2020-09-22] MEDS: FAMOTIDINE 20 MG/50 ML IVPB 20 MG/50 ML MG IVPB SCH ×2 (09:07→22:13)
[2020-09-22] MEDS: DEXAMETHASONE SOD PHOSPHATE 4 MG/1 ML VIAL IVPUSH SCH (09:08)
[2020-09-22] MEDS: ENOXAPARIN NA (PORCINE) 80 MG/0.8 ML DISP.SYRIN SQ SCH ×2 (09:09→22:13)
[2020-09-22] MEDS: ASCORBIC ACID 500 MG TABLET (FP) PO SCH ×2 (09:10→22:12)
[2020-09-22] MEDS: CHOLECALCIFEROL (VIT D3) 1,000 UNIT (25 MCG) TABLET PO SCH (09:10)
[2020-09-22] MEDS: OSELTAMIVIR PHOSPHATE 75 MG CAPSULE PO SCH ×2 (09:10→22:14)
[2020-09-22 10:02] LABS: ERYTHROCYTE SEDIMENTATION RATE 62 mm/hr (0-30)
[2020-09-22] MEDS: NITROFURANTOIN MACROCRYSTAL 50 MG CAPSULE (FP) PO SCH ×3 (14:52→23:18)
[2020-09-22] MEDS: REMDESIVIR 100 MG in SODIUM CHLORIDE 230 ML IVPB SCH (14:53)
[2020-09-22] MEDS: ZINC SULFATE 220 MG CAPSULE (FP) PO SCH (22:12)
[2020-09-23] MEDS: INSULIN (LEVEMIR) 100 UNITS/ML UNITS SQ SCH ×2 (06:28→21:24)
[2020-09-23] MEDS: NITROFURANTOIN MACROCRYSTAL 50 MG CAPSULE (FP) PO SCH ×3 (06:28→17:10)
[2020-09-23] MEDS: INSULIN SLIDING SCALE (NOVOLOG) 1 VIAL SQ SCH ×4 (06:29→21:25)
[2020-09-23] MEDS ORDERED: INSULIN (NOVOLOG) ASPART 100 UNITS/ML 10ML VIAL ONE ×2 (07:03→11:18)
[2020-09-23] MEDS ORDERED: INSULIN (LEVEMIR) 100 UNITS/ML UNITS SQ ONE (07:03)
[2020-09-23 08:30] LABS: BASO % 0.6 % (0-2.0); HEMATOCRIT 40.2 % (32.4-45.2); LYMPH % 17.2 % (8-40); MCH 26.9 pg (25.7-33.7); MCHC 32.3 g/dl (32.0-36.0); MEAN CELL VOLUME 83.3 fl (80-96); MEAN PLT VOLUME 10.1 fl (7.5-11.1); MONO % 4.1 % (3.8-10.2); NEUT % 78.1 % (42.8-82.8); PLATELET COUNT 191 K/MM3 (134-434); RBC 4.83 M/mm3 (3.60-5.2); RDW 13.8 % (11.6-15.6); WHITE BLOOD COUNT 10.3 K/mm3 (4.0-10.0)
[2020-09-23 08:53] LABS: BLOOD UREA NITROGEN 12.5 mg/dL (7-18); CALCIUM 9.3 mg/dL (8.5-10.1)
[2020-09-23 08:54] LABS: ALBUMIN 2.8 g/dl (3.4-5.0)
[2020-09-23 08:56] LABS: CREATININE 0.5 mg/dL (0.55-1.3)
[2020-09-23 08:57] LABS: BILIRUBIN,TOTAL 0.5 mg/dL (0.2-1); TOT PROT 6.4 g/dl (6.4-8.2)
[2020-09-23] MEDS: DEXAMETHASONE SOD PHOSPHATE 4 MG/1 ML VIAL IVPUSH SCH (10:03)
[2020-09-23] MEDS: OSELTAMIVIR PHOSPHATE 75 MG CAPSULE PO SCH ×2 (10:03→21:03)
[2020-09-23] MEDS: FAMOTIDINE 20 MG/50 ML IVPB 20 MG/50 ML MG IVPB SCH ×2 (10:03→21:02)
[2020-09-23] MEDS: ENOXAPARIN NA (PORCINE) 80 MG/0.8 ML DISP.SYRIN SQ SCH ×2 (10:03→21:02)
[2020-09-23] MEDS: ASCORBIC ACID 500 MG TABLET (FP) PO SCH ×2 (10:03→21:02)
[2020-09-23] MEDS: CHOLECALCIFEROL (VIT D3) 1,000 UNIT (25 MCG) TABLET PO SCH (10:04)
[2020-09-23] MEDS: REMDESIVIR 100 MG in SODIUM CHLORIDE 230 ML IVPB SCH (14:21)
[2020-09-23] MEDS ORDERED: PT OWN MED DRAWER 7, Y5N ONE (20:56)
[2020-09-23] MEDS: ZINC SULFATE 220 MG CAPSULE (FP) PO SCH (21:03)
[2020-09-24] MEDS: NITROFURANTOIN MACROCRYSTAL 50 MG CAPSULE (FP) PO SCH ×5 (00:49→23:21)
[2020-09-24] MEDS: INSULIN (LEVEMIR) 100 UNITS/ML UNITS SQ SCH ×2 (06:07→22:33)
[2020-09-24] MEDS: INSULIN SLIDING SCALE (NOVOLOG) 1 VIAL SQ SCH ×4 (06:12→22:49)
[2020-09-24 08:25] LABS: BASO % 0.5 % (0-2.0); HEMATOCRIT 41.9 % (32.4-45.2); HEMOGLOBIN 13.2 GM/dL (10.7-15.3); LYMPH % 22.1 % (8-40); MCH 26.1 pg (25.7-33.7); MCHC 31.5 g/dl (32.0-36.0); MEAN CELL VOLUME 83.1 fl (80-96); MEAN PLT VOLUME 9.7 fl (7.5-11.1); MONO % 8.2 % (3.8-10.2); NEUT % 69.2 % (42.8-82.8); PLATELET COUNT 209 K/MM3 (134-434); RBC 5.05 M/mm3 (3.60-5.2); RDW 13.7 % (11.6-15.6); WHITE BLOOD COUNT 5.7 K/mm3 (4.0-10.0)
[2020-09-24 08:46] LABS: POTASSIUM 4.2 mmol/L (3.5-5.1)
[2020-09-24 08:49] LABS: ALBUMIN 2.8 g/dl (3.4-5.0); BLOOD UREA NITROGEN 16.8 mg/dL (7-18); CALCIUM 9.3 mg/dL (8.5-10.1); MAGNESIUM 2.5 mg/dL (1.8-2.4)
[2020-09-24 08:52] LABS: CREATININE 0.4 mg/dL (0.55-1.3)
[2020-09-24 08:54] LABS: TOT PROT 6.6 g/dl (6.4-8.2)
[2020-09-24] MEDS: DEXAMETHASONE SOD PHOSPHATE 4 MG/1 ML VIAL IVPUSH SCH (11:02)
[2020-09-24] MEDS: ENOXAPARIN NA (PORCINE) 80 MG/0.8 ML DISP.SYRIN SQ SCH ×2 (11:02→22:33)
[2020-09-24] MEDS: ASCORBIC ACID 500 MG TABLET (FP) PO SCH ×2 (11:02→22:32)
[2020-09-24] MEDS: FAMOTIDINE 20 MG/50 ML IVPB 20 MG/50 ML MG IVPB SCH ×2 (11:02→22:33)
[2020-09-24] MEDS: OSELTAMIVIR PHOSPHATE 75 MG CAPSULE PO SCH ×2 (11:03→22:32)
[2020-09-24] MEDS: CHOLECALCIFEROL (VIT D3) 1,000 UNIT (25 MCG) TABLET PO SCH (11:03)
[2020-09-24 13:20] VITALS: BMI 29.9
[2020-09-24] MEDS: REMDESIVIR 100 MG in SODIUM CHLORIDE 230 ML IVPB SCH (14:47)
[2020-09-24] MEDS ORDERED: PT OWN MED DRAWER 7, Y5N ONE (22:31)
[2020-09-24] MEDS: ZINC SULFATE 220 MG CAPSULE (FP) PO SCH (22:32)
[2020-09-25] MEDS: INSULIN (LEVEMIR) 100 UNITS/ML UNITS SQ SCH ×2 (06:06→22:25)
[2020-09-25] MEDS: NITROFURANTOIN MACROCRYSTAL 50 MG CAPSULE (FP) PO SCH ×4 (06:06→23:32)
[2020-09-25] MEDS: INSULIN SLIDING SCALE (NOVOLOG) 1 VIAL SQ SCH ×4 (06:07→22:32)
[2020-09-25 08:22] LABS: BASO % 0.6 % (0-2.0); HEMATOCRIT 42.5 % (32.4-45.2); HEMOGLOBIN 13.6 GM/dL (10.7-15.3); LYMPH % 22.3 % (8-40); MCH 26.7 pg (25.7-33.7); MEAN CELL VOLUME 83.4 fl (80-96); MEAN PLT VOLUME 9.7 fl (7.5-11.1); MONO % 8.5 % (3.8-10.2); NEUT % 68.6 % (42.8-82.8); PLATELET COUNT 276 K/MM3 (134-434); RDW 13.7 % (11.6-15.6); WHITE BLOOD COUNT 6.3 K/mm3 (4.0-10.0)
[2020-09-25 08:50] LABS: POTASSIUM 4.1 mmol/L (3.5-5.1)
[2020-09-25 08:55] LABS: ALBUMIN 2.8 g/dl (3.4-5.0); MAGNESIUM 2.2 mg/dL (1.8-2.4)
[2020-09-25 08:58] LABS: CREATININE 0.4 mg/dL (0.55-1.3)
[2020-09-25 08:59] LABS: BILIRUBIN,TOTAL 0.4 mg/dL (0.2-1)
[2020-09-25 09:00] LABS: TOT PROT 6.4 g/dl (6.4-8.2)
[2020-09-25] MEDS ORDERED: PT OWN MED DRAWER 7, Y5N ONE ×3 (09:18→23:34)
[2020-09-25] MEDS: CHOLECALCIFEROL (VIT D3) 1,000 UNIT (25 MCG) TABLET PO SCH (10:14)
[2020-09-25] MEDS: OSELTAMIVIR PHOSPHATE 75 MG CAPSULE PO SCH ×2 (10:14→23:32)
[2020-09-25] MEDS: ASCORBIC ACID 500 MG TABLET (FP) PO SCH ×2 (10:14→22:25)
[2020-09-25] MEDS: FAMOTIDINE 20 MG/50 ML IVPB 20 MG/50 ML MG IVPB SCH ×2 (10:15→22:25)
[2020-09-25] MEDS: ENOXAPARIN NA (PORCINE) 80 MG/0.8 ML DISP.SYRIN SQ SCH ×2 (10:15→22:25)
[2020-09-25] MEDS: DEXAMETHASONE SOD PHOSPHATE 4 MG/1 ML VIAL IVPUSH SCH (10:15)
[2020-09-25] MEDS: REMDESIVIR 100 MG in SODIUM CHLORIDE 230 ML IVPB SCH (17:16)
[2020-09-25] MEDS ORDERED: INSULIN (NOVOLOG) ASPART 100 UNITS/ML 10ML VIAL ONE (21:11)
[2020-09-25] MEDS: ZINC SULFATE 220 MG CAPSULE (FP) PO SCH (22:25)
[2020-09-26] MEDS: NITROFURANTOIN MACROCRYSTAL 50 MG CAPSULE (FP) PO SCH ×4 (06:42→23:26)
[2020-09-26] MEDS: INSULIN (LEVEMIR) 100 UNITS/ML UNITS SQ SCH ×2 (06:42→21:50)
[2020-09-26] MEDS: INSULIN SLIDING SCALE (NOVOLOG) 1 VIAL SQ SCH ×5 (06:48→21:57)
[2020-09-26] MEDS: FAMOTIDINE 20 MG/50 ML IVPB 20 MG/50 ML MG IVPB SCH ×2 (10:28→21:49)
[2020-09-26] MEDS: ENOXAPARIN NA (PORCINE) 80 MG/0.8 ML DISP.SYRIN SQ SCH ×2 (10:28→21:50)
[2020-09-26] MEDS: ASCORBIC ACID 500 MG TABLET (FP) PO SCH ×2 (10:28→21:50)
[2020-09-26] MEDS: CHOLECALCIFEROL (VIT D3) 1,000 UNIT (25 MCG) TABLET PO SCH (10:29)
[2020-09-26] MEDS: DEXAMETHASONE SOD PHOSPHATE 4 MG/1 ML VIAL IVPUSH SCH (10:29)
[2020-09-26 11:56] LABS: EOS % 0.2 % (0-4.5); HEMATOCRIT 43.2 % (32.4-45.2); HEMOGLOBIN 13.7 GM/dL (10.7-15.3); LYMPH % 16.8 % (8-40); MCHC 31.7 g/dl (32.0-36.0); MEAN CELL VOLUME 82.2 fl (80-96); MEAN PLT VOLUME 9.3 fl (7.5-11.1); MONO % 6.8 % (3.8-10.2); NEUT % 75.2 % (42.8-82.8); PLATELET COUNT 378 K/MM3 (134-434); RBC 5.26 M/mm3 (3.60-5.2); RDW 13.7 % (11.6-15.6); WHITE BLOOD COUNT 14.5 K/mm3 (4.0-10.0)
[2020-09-26 12:20] LABS: POTASSIUM 3.9 mmol/L (3.5-5.1)
[2020-09-26 12:22] LABS: CALCIUM 8.9 mg/dL (8.5-10.1)
[2020-09-26 12:23] LABS: ALBUMIN 2.9 g/dl (3.4-5.0); BLOOD UREA NITROGEN 17.6 mg/dL (7-18)
[2020-09-26 12:26] LABS: CREATININE 0.5 mg/dL (0.55-1.3)
[2020-09-26 12:27] LABS: BILIRUBIN,TOTAL 0.5 mg/dL (0.2-1); TOT PROT 6.3 g/dl (6.4-8.2)
[2020-09-26] MEDS: MULTIVITAMINS (DAILY MVI) TABLET (FP) PO SCH (15:00)
[2020-09-26] MEDS ORDERED: INSULIN (NOVOLOG) ASPART 100 UNITS/ML 10ML VIAL ONE (17:05)
[2020-09-26] MEDS ORDERED: PT OWN MED DRAWER 7, Y5N ONE (21:44)
[2020-09-26] MEDS: ZINC SULFATE 220 MG CAPSULE (FP) PO SCH (21:49)
[2020-09-27] MEDS: INSULIN (LEVEMIR) 100 UNITS/ML UNITS SQ SCH ×2 (06:16→21:18)
[2020-09-27] MEDS: NITROFURANTOIN MACROCRYSTAL 50 MG CAPSULE (FP) PO SCH ×3 (06:16→17:02)
[2020-09-27] MEDS: INSULIN SLIDING SCALE (NOVOLOG) 1 VIAL SQ SCH ×4 (06:20→21:19)
[2020-09-27 08:43] LABS: EOS % 0.5 % (0-4.5); HEMATOCRIT 42.2 % (32.4-45.2); HEMOGLOBIN 13.5 GM/dL (10.7-15.3); MCH 26.2 pg (25.7-33.7); MCHC 31.9 g/dl (32.0-36.0); MEAN CELL VOLUME 82.2 fl (80-96); MEAN PLT VOLUME 9.2 fl (7.5-11.1); MONO % 9.1 % (3.8-10.2); NEUT % 70.4 % (42.8-82.8); PLATELET COUNT 327 K/MM3 (134-434); RBC 5.13 M/mm3 (3.60-5.2); RDW 13.7 % (11.6-15.6); WHITE BLOOD COUNT 8.5 K/mm3 (4.0-10.0)
[2020-09-27 08:51] LABS: POTASSIUM 3.9 mmol/L (3.5-5.1)
[2020-09-27 08:54] LABS: ALBUMIN 2.8 g/dl (3.4-5.0); BLOOD UREA NITROGEN 16.8 mg/dL (7-18); CALCIUM 8.7 mg/dL (8.5-10.1); MAGNESIUM 2.1 mg/dL (1.8-2.4)
[2020-09-27 08:57] LABS: CREATININE 0.5 mg/dL (0.55-1.3)
[2020-09-27 08:59] LABS: BILIRUBIN,TOTAL 0.8 mg/dL (0.2-1); TOT PROT 6.1 g/dl (6.4-8.2)
[2020-09-27] MEDS ORDERED: PT OWN MED DRAWER 7, Y5N ONE (11:33)
[2020-09-27] MEDS ORDERED: INSULIN (NOVOLOG) ASPART 100 UNITS/ML 10ML VIAL ONE (11:34)
[2020-09-27] MEDS: ENOXAPARIN NA (PORCINE) 80 MG/0.8 ML DISP.SYRIN SQ SCH ×2 (11:47→21:18)
[2020-09-27] MEDS: FAMOTIDINE 20 MG/50 ML IVPB 20 MG/50 ML MG IVPB SCH ×2 (11:47→21:17)
[2020-09-27] MEDS: DEXAMETHASONE SOD PHOSPHATE 4 MG/1 ML VIAL IVPUSH SCH (11:47)
[2020-09-27] MEDS: MULTIVITAMINS (DAILY MVI) TABLET (FP) PO SCH (11:48)
[2020-09-27] MEDS: ASCORBIC ACID 500 MG TABLET (FP) PO SCH ×2 (11:48→21:18)
[2020-09-27] MEDS: CHOLECALCIFEROL (VIT D3) 1,000 UNIT (25 MCG) TABLET PO SCH (11:49)
[2020-09-27] MEDS: ZINC SULFATE 220 MG CAPSULE (FP) PO SCH (21:17)
[2020-09-28] MEDS: NITROFURANTOIN MACROCRYSTAL 50 MG CAPSULE (FP) PO SCH ×5 (00:19→23:44)
[2020-09-28] MEDS: INSULIN (LEVEMIR) 100 UNITS/ML UNITS SQ SCH ×2 (06:21→22:31)
[2020-09-28] MEDS: INSULIN SLIDING SCALE (NOVOLOG) 1 VIAL SQ SCH ×4 (06:22→22:32)
[2020-09-28 08:43] LABS: BASO % 3.2 % (0-2.0); HEMATOCRIT 45.1 % (32.4-45.2); HEMOGLOBIN 14.3 GM/dL (10.7-15.3); LYMPH % 26.3 % (8-40); MCH 26.3 pg (25.7-33.7); MCHC 31.8 g/dl (32.0-36.0); MEAN CELL VOLUME 82.7 fl (80-96); MEAN PLT VOLUME 8.8 fl (7.5-11.1); MONO % 8.2 % (3.8-10.2); NEUT % 61.3 % (42.8-82.8); PLATELET COUNT 455 K/MM3 (134-434); RBC 5.46 M/mm3 (3.60-5.2); RDW 13.5 % (11.6-15.6); WHITE BLOOD COUNT 9.2 K/mm3 (4.0-10.0)
[2020-09-28 08:55] LABS: POTASSIUM 4.1 mmol/L (3.5-5.1)
[2020-09-28 09:10] LABS: ALBUMIN 3.1 g/dl (3.4-5.0); BLOOD UREA NITROGEN 14.3 mg/dL (7-18)
[2020-09-28 09:11] LABS: BILIRUBIN,TOTAL 0.8 mg/dL (0.2-1)
[2020-09-28 09:12] LABS: TOT PROT 6.8 g/dl (6.4-8.2)
[2020-09-28 09:13] LABS: CALCIUM 9.7 mg/dL (8.5-10.1); CREATININE 0.7 mg/dL (0.55-1.3); MAGNESIUM 2.3 mg/dL (1.8-2.4)
[2020-09-28] MEDS: ENOXAPARIN NA (PORCINE) 80 MG/0.8 ML DISP.SYRIN SQ SCH ×2 (11:41→22:31)
[2020-09-28] MEDS: MULTIVITAMINS (DAILY MVI) TABLET (FP) PO SCH (11:41)
[2020-09-28] MEDS: ASCORBIC ACID 500 MG TABLET (FP) PO SCH ×2 (11:41→22:31)
[2020-09-28] MEDS: FAMOTIDINE 20 MG/50 ML IVPB 20 MG/50 ML MG IVPB SCH ×2 (11:41→22:31)
[2020-09-28] MEDS: DEXAMETHASONE SOD PHOSPHATE 4 MG/1 ML VIAL IVPUSH SCH (11:42)
[2020-09-28] MEDS: CHOLECALCIFEROL (VIT D3) 1,000 UNIT (25 MCG) TABLET PO SCH (11:45)
[2020-09-28] MEDS: ZINC SULFATE 220 MG CAPSULE (FP) PO SCH (22:31)
[2020-09-29] MEDS ORDERED: ASPIRIN 81 MG CHEWABLE TABLETS PO STA (01:54)
[2020-09-29 03:04] LABS: CHLORIDE 102 mmol/L (98-107); POTASSIUM 4.3 mmol/L (3.5-5.1); SODIUM 135 mmol/L (136-145)
[2020-09-29 03:07] LABS: CALCIUM 9.3 mg/dL (8.5-10.1)
[2020-09-29 03:08] LABS: ANION GAP 8 MMOL/L (8-16); BLOOD UREA NITROGEN 13.9 mg/dL (7-18); CO2 25 mmol/L (21-32); GLUCOSE,RANDOM 184 mg/dL (74-106)
[2020-09-29 03:11] LABS: CREATININE 0.5 mg/dL (0.55-1.3)
[2020-09-29] MEDS: INSULIN (LEVEMIR) 100 UNITS/ML UNITS SQ SCH (06:13)
[2020-09-29] MEDS: NITROFURANTOIN MACROCRYSTAL 50 MG CAPSULE (FP) PO SCH ×3 (06:13→17:31)
[2020-09-29] MEDS: INSULIN SLIDING SCALE (NOVOLOG) 1 VIAL SQ SCH ×3 (06:14→16:33)
[2020-09-29] MEDS ORDERED: INSULIN (NOVOLOG) ASPART 100 UNITS/ML 10ML VIAL ONE ×2 (06:27→11:25)
[2020-09-29] MEDS: MULTIVITAMINS (DAILY MVI) TABLET (FP) PO SCH (09:04)
[2020-09-29] MEDS: DEXAMETHASONE SOD PHOSPHATE 4 MG/1 ML VIAL IVPUSH SCH (09:04)
[2020-09-29] MEDS: ASCORBIC ACID 500 MG TABLET (FP) PO SCH (09:04)
[2020-09-29] MEDS: CHOLECALCIFEROL (VIT D3) 1,000 UNIT (25 MCG) TABLET PO SCH (09:04)
[2020-09-29] MEDS: ENOXAPARIN NA (PORCINE) 80 MG/0.8 ML DISP.SYRIN SQ SCH (09:10)
[2020-09-29] MEDS: FAMOTIDINE 20 MG/50 ML IVPB 20 MG/50 ML MG IVPB SCH (09:15)
[2020-09-29] MEDS: ACETAMINOPHEN 325 MG TABLET (FP) PO PRN (09:53)
[2020-09-29 11:09] LABS: BASO % 1.7 % (0-2.0); EOS % 1.9 % (0-4.5); HEMATOCRIT 43.5 % (32.4-45.2); LYMPH % 18.7 % (8-40); MCH 26.7 pg (25.7-33.7); MCHC 32.1 g/dl (32.0-36.0); MEAN CELL VOLUME 83.3 fl (80-96); MONO % 7.5 % (3.8-10.2); NEUT % 70.2 % (42.8-82.8); PLATELET COUNT 406 K/MM3 (134-434); RBC 5.22 M/mm3 (3.60-5.2); RDW 13.8 % (11.6-15.6); WHITE BLOOD COUNT 8.6 K/mm3 (4.0-10.0)
[2020-09-29 11:27] LABS: POTASSIUM 4.4 mmol/L (3.5-5.1)
[2020-09-29 11:31] LABS: CALCIUM 9.2 mg/dL (8.5-10.1)
[2020-09-29 11:32] LABS: ALBUMIN 2.8 g/dl (3.4-5.0); BLOOD UREA NITROGEN 14.7 mg/dL (7-18); MAGNESIUM 2.2 mg/dL (1.8-2.4)
[2020-09-29 11:35] LABS: CREATININE 0.6 mg/dL (0.55-1.3)
[2020-09-29 11:37] LABS: BILIRUBIN,TOTAL 0.7 mg/dL (0.2-1)
[2020-09-29 12:41] LABS: ANISOCYTOSIS 0; MACROCYTOSIS 0; PLATELET ESTIMATE NORMAL
[2020-09-29 19:32] VITALS: BP 132/63; PULSE 98; TEMP 98
[2020-09-29] MEDS ORDERED: APIXABAN 5 MG TABLET PO SCH (22:00)
== END 2020-09-29 18:06 | disposition home or self-care (01) | DRG 177 ==
LOC: JER 12:50 → JERBED 15:18 → J5S 23:48
PROVIDERS: ADMIT Internal Medicine; ATTEND Nurse Practitioner Family
PROC: XW033E5 Introduction of Remdesivir Anti-infective into Peripheral Vein, Percutaneous Approach, New Technology Group 5 (ICD-10-PCS; principal; 2020-09-21)
PROC: XW13325 Transfusion of Convalescent Plasma (Nonautologous) into Peripheral Vein, Percutaneous Approach, New Technology Group 5 (ICD-10-PCS; 2020-09-21)
DX: U07.1 COVID-19 (principal); J12.89 Other viral pneumonia; J96.01 Acute respiratory failure with hypoxia; N39.0 Urinary tract infection, site not specified; Z16.12 Extended spectrum beta lactamase (ESBL) resistance; R50.9 Fever, unspecified; I10 Essential (primary) hypertension; E78.5 Hyperlipidemia, unspecified; E11.9 Type 2 diabetes mellitus without complications; E11.42 Type 2 diabetes mellitus with diabetic polyneuropathy; K21.9 Gastro-esophageal reflux disease without esophagitis; E66.9 Obesity, unspecified; Z68.29 Body mass index [BMI] 29.0-29.9, adult; K29.70 Gastritis, unspecified, without bleeding; J11.1 Influenza due to unidentified influenza virus with other respiratory manifestations; R07.89 Other chest pain; B96.20 Unspecified Escherichia coli [E. coli] as the cause of diseases classified elsewhere; R63.0 Anorexia
CPT/HCPCS: 36415; 36430; 71045-TC-FY; 71275-TC; 80048; 80053; 81003; 82550; 82728; 82803; 82962; 83036; 83605; 83615; 83735; 84100; 84484; 85025; 85379; 85610; 85651; 85730; 86140; 86850; 86900; 86901; 87040; 87070; 87086; 87186; 87804; 87880; 93005; 93010; 94761; 97116-GP; 97162-GP; 99291; C9803; J0131; J1100; P9017; Q9967; U0003